=== PATIENT | female | born 1975 | race Caucasian/White ===

== ENCOUNTER 2017-02-14 08:23 | Outpatient (CLI) | payer OTHER, MEDICAID ==
--- NOTE | 2017-02-14 17:07 | XRAY Report ---
EXAM: CHEST RADIOGRAPHY EXAM DATE: 02/14/2017 08:52 AM. CLINICAL HISTORY: Shortness of breath and fatigue. COMPARISON: None. TECHNIQUE: 2 views. FINDINGS: Lungs/Pleura: No focal opacities evident. No pleural effusion. No pneumothorax. Normal volumes. Mediastinum: Heart and mediastinal contours are unremarkable. Other: None. IMPRESSION: Normal 2-view chest radiography. [facility] Referring Provider Line: [phone] SITE ID: [id number]
--- NOTE | 2017-02-14 17:17 | Ultrasound Report ---
EXAM: PELVIC ULTRASOUND EXAM DATE: 02/14/2017 09:58 AM. CLINICAL HISTORY: BLOATING. FAMILY HISTORY OF OVARIAN CANCER. COMPARISON: None. TECHNIQUE: Realtime transabdominal pelvic scan performed to identify the uterus and adnexa and as an overview of other pelvic structures, followed by transvaginal scan to provide greater detail of the u terus and adnexa, with static image documentation. FINDINGS: Uterus: 7.9 x 4.5 x 3.3 cm, volume 61.3 cc. Anteverted position. Normal overall size and echotexture. Masses: None. Endometrium: 5 mm. Normal. Cervix: Unremarkable. Right Ovary: 2.6 x 1.4 x 1.4 cm, volume 2.6 cc. Normal echotexture and blood flow. Left Ovary: 2.7 x 1.0 x 1.2 cm, volume 1.6 cc. Normal echotexture and blood flow. Free Fluid: None. Other: None. IMPRESSION: Normal pelvic ultrasound. [facility] Referring Provider Line: [phone] SITE ID: [id number]
== END 2017-02-14 08:24 | disposition home or self-care (01) ==
LOC: DI 08:23
PROVIDERS: ATTEND Physician Assistant Medical
DX: R14.0 Abdominal distension (gaseous) (principal); Z80.41 Family history of malignant neoplasm of ovary; R06.02 Shortness of breath; R53.83 Other fatigue
CPT/HCPCS: 71020; 76830; 76856

== ENCOUNTER 2017-03-16 14:30 | Outpatient (CLI) | payer OTHER, MEDICAID | END 2017-03-16 14:31 | disposition home or self-care (01) | LOC: SC 14:30 | PROVIDERS: ATTEND Internal Medicine Pulmonary Disease | DX: G47.10 Hypersomnia, unspecified (principal); G47.8 Other sleep disorders; R06.83 Snoring; R51 Headache | CPT/HCPCS: 99203; 99212 ==

== ENCOUNTER 2017-03-18 11:34 | Day surgery (SDC) | payer OTHER, MEDICAID ==
[2017-03-18] MEDS ORDERED: LACTATED RINGERS 1,000 ML IV ONE (11:39)
[2017-03-18 12:11] LABS: HCG UR QUAL NEGATIVE
[2017-03-18] MEDS ORDERED: MIDAZOLAM 2 MG/2 ML VIAL IVP ONE (12:18)
[2017-03-18] MEDS ORDERED: fentaNYL 100 MCG/2 ML VIAL IVP ONE (12:18)
[2017-03-18 13:59] VITALS: BP 132/78
--- NOTE | 2017-03-21 02:14 | PROCEDURE REPORT ---
DATE OF PROCEDURE: 03/18/2017 00:00:00 PROCEDURES: Esophagogastroduodenoscopy and colonoscopy. ENDOSCOPIST: Yon Coleman MD PRIMARY CARE PROVIDER: GIFTY Doe INDICATION: Family history of colon cancer with her father dying at age 62. In addition, this was w idely metastatic. She thinks he may have had esophageal cancer as well. Her sister was diagnosed re cently at age 41, and a paternal grandfather has been diagnosed as well. 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 In addition, she has chronic dyspepsia with workup in the past. She also has chronic d iarrhea, for which she takes 8 Imodium a day to get formed bowel movements up to 6 per day. She is d ue to get genetic testing at [facility]. OPERATIVE PROCEDURE: After informed consent was obtained, the patient was placed in the left lateral decubitus position. The upper endoscope was placed into the oropharynx and with the patient's swall owed into the esophagus. The esophagus, stomach, and duodenum were carefully examined. On withdrawa l, retroflexed view of the GE junction was performed. The scope was removed. The patient tolerated the procedure well. The patient was then turned. The colonoscope was the substituted, and this was easily passed to the cecum. Preparation was good, except in the right colon, where there was some residual vegetable mate rial that could not be suctioned away. On slow withdrawal, the mucosa was carefully examined. The s cope was removed. The patient tolerated the procedure well. BLOOD LOSS: None. COMPLICATIONS: None. FINDINGS - EGD 1. Normal esophagus. 2. Stomach full of old food despite not having eaten in many hours. This probably indicates gastropa resis. 3. Normal duodenal bulb and sweep. Biopsy taken to rule out celiac. FINDINGS - COLONOSCOPY 1. Generally normal colonic mucosa, biopsies taken randomly to rule out microscopic colitis. 2. No evidence for colonic neoplasia. At this time, given her strong family history and meeting Smock criteria, she should have recall colonoscopy in 2 years. I would encourage her to get genetic testing if covered, but more importantl y, her sister should be tested, as she is the one who actually had the colon cancer. If that specifi c genetic defect is found in her, then it would be far less costly to test other members of the famil y. As concerns her diarrhea, we will merely await biopsies, and she should follow up with me in 1-2 sima hs. In the meantime, she should be on a low-residue, low-fat diet because of her gastroparesis. Mirian stewart may need to be investigated further as well. She did tell me that she has been diagnosed as having H pylori but has not picked up the medications for it yet. JOB #: [id number] EXT JOB #:[id number]
== END 2017-03-18 11:35 | disposition home or self-care (01) ==
LOC: SDS 11:34
PROVIDERS: ATTEND Internal Medicine Gastroenterology
PROC: 0DBE8ZX Excision of Large Intestine, Via Natural or Artificial Opening Endoscopic, Diagnostic (ICD-10-PCS; principal; 2017-03-18 12:30)
PROC: 0DB98ZX Excision of Duodenum, Via Natural or Artificial Opening Endoscopic, Diagnostic (ICD-10-PCS; 2017-03-18 12:30)
DX: Z12.11 Encounter for screening for malignant neoplasm of colon (principal); R10.13 Epigastric pain; Z80.0 Family history of malignant neoplasm of digestive organs; K52.9 Noninfective gastroenteritis and colitis, unspecified; I10 Essential (primary) hypertension
CPT/HCPCS: 43239; 45380; 81025; 88305; J7120

== ENCOUNTER 2017-06-10 14:27 | Outpatient (CLI) | payer BC, MEDICAID, OTHER | END 2017-06-10 14:28 | disposition home or self-care (01) | LOC: SC 14:27 | PROVIDERS: ATTEND Nurse Practitioner Family | DX: G47.30 Sleep apnea, unspecified (principal); G47.10 Hypersomnia, unspecified; R51 Headache; R09.89 Other specified symptoms and signs involving the circulatory and respiratory systems; G47.8 Other sleep disorders; G47.00 Insomnia, unspecified | CPT/HCPCS: 99212; 99214 ==

== ENCOUNTER 2017-10-27 21:36 | Outpatient (CLI) | payer OTHER | END 2017-10-27 21:37 | disposition home or self-care (01) | LOC: SC 21:36 | PROVIDERS: ATTEND Internal Medicine Pulmonary Disease | DX: G47.33 Obstructive sleep apnea (adult) (pediatric) (principal) | CPT/HCPCS: 95810 ==

== ENCOUNTER 2017-10-28 06:31 | Outpatient (CLI) | payer OTHER | END 2017-10-28 06:32 | disposition home or self-care (01) | LOC: SC 06:31 | PROVIDERS: ATTEND Internal Medicine Pulmonary Disease | DX: G47.30 Sleep apnea, unspecified (principal); G47.10 Hypersomnia, unspecified | CPT/HCPCS: 95805 ==

== ENCOUNTER 2017-10-28 16:14 | Outpatient (CLI) | payer OTHER ==
[2017-10-28 09:47] LABS: MUDS CUTOFF CONCENTRATIONS CUTOFF CONC BELOW:
[2017-10-28 14:07] LABS: AMPHETAMINE SCREEN,URINE NEGATIVE (NEGATIVE); BENZODIAZEPINES SCREEN, URINE NEGATIVE (NEGATIVE); COCAINE SCREEN URINE NEGATIVE (NEGATIVE); METHADONE SCREEN, URINE NEGATIVE (NEGATIVE); METHAMPHETAMINES SCREEN, URINE NEGATIVE (NEGATIVE); OPIATE SCREEN, URINE NEGATIVE (NEGATIVE); OXYCODONE SCREEN, URINE NEGATIVE (NEGATIVE); PROPOXYPHENE SCREEN, URINE NEGATIVE (NEGATIVE); TRICYCLIC ANTIDEPRESSANT,URINE NEGATIVE (NEGATIVE)
== END 2017-10-28 16:15 | disposition home or self-care (01) ==
LOC: LAB.N 16:14
PROVIDERS: ATTEND Nurse Practitioner Family
DX: G47.33 Obstructive sleep apnea (adult) (pediatric) (principal)
CPT/HCPCS: 80306

== ENCOUNTER 2017-11-08 00:10 | Emergency (ER) | payer OTHER ==
[2017-11-08 00:39] LABS: BASOPHILS # (AUTO) 0.1 10^3/uL (0.0-0.1); BASOPHILS % (AUTO) 0.8 %; EOSINOPHILS # (AUTO) 0.2 10^3/uL (0.0-0.7); EOSINOPHILS % (AUTO) 1.6 %; HGB - HEMOGLOBIN 13.9 g/dL (12.0-16.0); LYMPHOCYTES # (AUTO) 5.1 10^3/uL (1.5-3.5); LYMPHOCYTES % (AUTO) 33.1 %; MEAN CORPUSCULAR HEMOGLOBIN 28.6 pg (27.0-31.0); MEAN CORPUSCULAR HGB CONC 33.7 g/dL (32.0-36.0); MEAN CORPUSCULAR VOLUME 84.9 fL (81.0-99.0); MEAN PLATELET VOLUME 7.9 fL (7.9-10.8); MONOCYTES # (AUTO) 1.1 10^3/uL (0.0-1.0); NEUTROPHILS # (AUTO) 8.8 10^3/uL (1.5-6.6); NEUTROPHILS % (AUTO) 57.5 %; PLT - PLATELET COUNT 370 10^3/uL (130-450); RED BLOOD COUNT 4.86 10^6/uL (4.20-5.40); RED CELL DISTRIBUTION WIDTH 13.1 % (12.0-15.0); WHITE BLOOD COUNT 15.3 x10^3/uL (4.8-10.8)
[2017-11-08 00:40] LABS: BILIRUBIN,URINE NEGATIVE (NEGATIVE); GLUCOSE, URINE (UA) NEGATIVE (NEGATIVE); KETONES,URINE (UA) NEGATIVE (NEGATIVE); LEUKOCYTE ESTERASE, URINE NEGATIVE (NEGATIVE); NITRITE,URINE NEGATIVE (NEGATIVE); OCCULT BLOOD,URINE LARGE (NEGATIVE); PROTEIN,URINE NEGATIVE (NEGATIVE); UROBILINOGEN,URINE 0.2 (NORMAL) E.U./dL (NORMAL)
[2017-11-08 00:43] LABS: CLARITY,URINE CLOUDY (CLEAR); HCG UR QUAL NEGATIVE
[2017-11-08 00:47] LABS: ALBUMIN 3.9 g/dL (3.2-5.5); ALBUMIN/GLOBULIN RATIO 1.3 (1.0-2.2); ALKALINE PHOSPHATASE 62 IU/L (42-121); ALT ALANINE AMINOTRANSFERASE 13 IU/L (10-60); AST ASPARTATE AMINOTRANSFERASE 16 IU/L (10-42); BILIRUBIN,TOTAL < 0.2 mg/dL (0.2-1.0); BUN - BLOOD UREA NITROGEN 12 mg/dL (6-20); CALCIUM 8.9 mg/dL (8.5-10.3); CARBON DIOXIDE - CO2 22 mmol/L (21-32); CHLORIDE 107 mmol/L (101-111); CREATININE 0.9 mg/dL (0.4-1.0); GFR - MDRD 68 (>89); GLUCOSE 116 mg/dL (70-100); LIPASE 35 U/L (22-51); SODIUM 136 mmol/L (135-145)
[2017-11-08 00:58] LABS: BACTERIA,URINE None Seen /HPF (None Seen); RBC,URINE TNTC /HPF (0-5); SQUAMOUS EPITHELIAL CELL,UR FEW Squamous (<= Few)
--- NOTE | 2017-11-08 01:03 | ED Physician Documentation ---
PD HPI ABD PAIN - Stated complaint Stated Complaint: ABD PX - Chief complaint Chief Complaint: Abd Pain - History obtained from History obtained from: Patient - History of Present Illness Timing - onset: How many weeks ago (2) Timing - details: Abrupt onset, Intermittant Pain level now: 6 Quality: Pain Location: RUQ Radiation: Right flank Improved by: Other (no ameliorating factors) Worsened by: Other (no exacerbating factors) Associated symptoms: Nausea. No: Fever, Vomiting, Diarrhea, Constipation Similar symptoms before: Diagnosis (many previous episodes of renal colic, although tonight's pain is not in a typical location compared to previous) Recently seen: Not recently seen - Additional information Additional information: c/o 2 weeks of episodic RUQ pain radiating to right flank, became severe this evening. Nausea without vomiting, responds to zofran Review of Systems Constitutional: denies: Fever, Chills, Sweats Cardiac: reports: Reviewed and negative Respiratory: reports: Reviewed and negative GI: reports: Abdominal Pain, Nausea. denies: Vomiting, Constipation, Diarrhea : denies: Dysuria, Frequency, Hematuria PD PAST MEDICAL HISTORY - Past Medical History Past Medical History: Yes Cardiovascular: Hypertension Respiratory: None Neuro: None Endocrine/Autoimmune: None GI: GERD PHYSICIST NUCLEAR: None : Kidney stones HEENT: None Psych: None Musculoskeletal: None Derm: None - Past Surgical History Past Surgical History: Yes Ortho: Shoulder arthroplasty - Present Medications Home Medications: Ambulatory Orders Medication Instructions Recorded Confirmed Control 01/29/13 01/29/13 Lisinopril [Zestril] 10 mg PO DAILY 01/29/13 03/17/17 Famotidine 11/08/17 Liraglutide [Victoza 2-Eligio] 11/08/17 Omeprazole [PriLOSEC] 11/08/17 Ondansetron Odt [Zofran] 4 mg TL Q6H PRN #14 tablet 11/08/17 Tamsulosin [Flomax] 0.4 mg PO DAILY #7 capsule 11/08/17 oxyCODONE/ACET 5/325 [Percocet 5 1 - 2 each PO Q6H PRN #20 tablet 11/08/17 mg/325 mg] - Allergies Allergies/Adverse Reactions: Allergies Allergy/AdvReac Type Severity Reaction Status Date / Time acetaminophen [From Vicodin] AdvReac Severe Nausea Verified 11/08/17 00:17 hydrocodone bitartrate * AdvReac Severe Nausea Verified 11/08/17 00:17 [From Vicodin] - Social History Does the pt smoke?: No Smoking Status: Never smoker Does the pt drink ETOH?: No Does the pt have substance abuse?: No - Immunizations Immunizations are current?: Yes - POLST Patient has POLST: No PD ED PE NORMAL - Vitals Vital signs reviewed: Yes - General General: Alert and oriented X 3, No acute distress, Well developed/nourished - Respiratory Respiratory: No respiratory distress, Clear bilaterally - Abdomen Abdomen: Soft, Non tender, Non distended - Back Back: No CVA TTP, No spinal TTP - Derm Derm: Normal color, Warm and dry, No rash Results - Vitals Vitals: Oxygen O2 Source Room air - Labs Labs: Laboratory Tests 11/08/17 11/08/17 11/08/17 00:28 00:28 00:28 WBC 15.3 H RBC 4.86 Hgb 13.9 Hct 41.2 MCV 84.9 MCH 28.6 MCHC 33.7 RDW 13.1 Plt Count 370 MPV 7.9 Neut # 8.8 H Lymph # 5.1 H Hart # 1.1 H Eos # 0.2 Baso # 0.1 Absolute Nucleated RBC 0.00 Nucleated RBC % 0.0 Sodium 136 Potassium 4.0 Chloride 107 Carbon Dioxide 22 Anion Gap 7.0 BUN 12 Creatinine 0.9 Estimated GFR (MDRD) 68 L Glucose 116 H Calcium 8.9 Total Bilirubin < 0.2 L AST 16 ALT 13 Alkaline Phosphatase 62 Total Protein 7.0 Albumin 3.9 Globulin 3.1 Albumin/Globulin Ratio 1.3 Lipase 35 Urine Color YELLOW Urine Clarity CLOUDY Urine pH 6.0 Ur Specific Terrell 1.015 Urine Protein NEGATIVE Urine Glucose (UA) NEGATIVE Urine Ketones NEGATIVE Urine Occult Blood LARGE H Urine Nitrite NEGATIVE Urine Bilirubin NEGATIVE Urine Urobilinogen 0.2 (NORMAL) Ur Leukocyte Esterase NEGATIVE Urine RBC TNTC H Urine WBC 0-3 Ur Squamous Epith Cells FEW Squamous Urine Bacteria None Seen Ur Microscopic Review INDICATED Urine Culture Comments NOT INDICATED Urine HCG, Qual NEGATIVE - Rads (name of study) CT A/P Radiology: Prelim report reviewed, See rad report PD MEDICAL DECISION MAKING - ED course Complexity details: reviewed results, re-evaluated patient, considered differential, d/w patient ED course: CT reveals right ureterolithiasis. Inadequate response to IV lidocaine, IV toradol. She had good pain relief with IV dilaudid 1mg, although this also made her quite nauseas. Held in ED and given IV zofran until she felt well enough to go home. Departure - Departure Disposition: , Self Care Clinical Impression: Renal colic Condition: Good Instructions: ED Stone Renal W Colic Follow-Up: Elif Fournier PA-C [Provider Admit Priv/Credential] - Prescriptions: Ondansetron Odt [Zofran] 4 mg TL Q6H PRN #14 tablet PRN Reason: Nausea / Vomiting oxyCODONE/ACET 5/325 [Percocet 5 mg/325 mg] 1 - 2 each PO Q6H PRN #20 tablet PRN Reason: Pain Tamsulosin [Flomax] 0.4 mg PO DAILY #7 capsule Discharge Date/Time: 11/08/17 06:14
[2017-11-08] MEDS ORDERED: KETOROLAC 60 MG/2 ML VIAL IVP STA (01:23)
--- NOTE | 2017-11-08 03:07 | CT Preliminary Report ---
Exam: CT ABDOMEN/PELVIS W/O IMPRESSION: 1. Mildly obstructing 7 x 5 mm mid to distal right ureteral stone. 2. Numerous bilateral nonobstructing renal stones with left stone burden worse than right. [facility] SITE ID: [id number]
--- NOTE | 2017-11-08 03:10 | CT Report ---
EXAM: CT ABDOMEN AND PELVIS (CT KUB) EXAM DATE: 11/08/2017 01:45 AM. CLINICAL HISTORY: Right flank pain. COMPARISONS: 01/29/2013. TECHNIQUE: Routine axial helical CT imaging was performed through the abdomen and pelvis without IV c ontrast. Reconstructions: Coronal and sagittal. In accordance with CT protocol optimization, one or more of the following dose reduction techniques w ere utilized for this exam: automated exposure control, adjustment of mA and/or KV based on patient s ize, or use of iterative reconstructive technique. FINDINGS: Lung Bases: Unremarkable. Right Kidney/Ureter: Mildly obstructing 7 x 5 mm mid to distal right ureteral stone. Several small no nobstructing right renal stones measuring up to 4 mm. Otherwise grossly unremarkable. Left Kidney/Ureter: Several small nonobstructing right renal stones measuring up to 6 mm. No ureteral stones, hydronephrosis, or hydroureter. Other Abdominal Organs: Noncontrast images of the abdominal organs are grossly unremarkable. Peritoneal Cavity: No free fluid, free air or preet adenopathy. No excessive stool burden. Bowel is g rossly unremarkable. Pelvic Organs: No bladder stones or gross wall thickening. Noncontrast images of the visualized pelvi c organs are unremarkable. Vasculature: Unremarkable. Other: None. IMPRESSION: 1. Mildly obstructing 7 x 5 mm mid to distal right ureteral stone. 2. Numerous bilateral nonobstructing renal stones with left stone burden worse than right. [facility] Referring Provider Line: [phone] SITE ID: [id number]
[2017-11-08] MEDS ORDERED: LIDOCAINE-MPF 2% 7.5 ML in SODIUM CHLORIDE 0.9% 50 ML IV STA (03:35)
[2017-11-08] MEDS ORDERED: TAMSULOSIN 0.4 MG CAPSULE PO STA (04:14)
[2017-11-08] MEDS ORDERED: ONDANSETRON 4 MG/2 ML VIAL IVP STA ×2 (04:22→05:34)
[2017-11-08] MEDS ORDERED: HYDROmorphone 1 MG/ML SYRINGE IVP STA (04:22)
[2017-11-08] MEDS ORDERED: ONDANSETRON 4 MG/2 ML VIAL ONE (05:44)
[2017-11-08 05:57] VITALS: BP 135/71
[2017-11-08] MEDS ORDERED: oxyCODONE/ACET 5/325 Prepack 4 PO STA (05:58)
== END 2017-11-08 06:14 | disposition home or self-care (01) ==
LOC: ED 00:10
DX: N20.1 Calculus of ureter (principal); I10 Essential (primary) hypertension
CPT/HCPCS: 36415; 74176; 80053; 81001; 81025; 83690; 85025; 96365; 96375; 96376; 99284; A9270; J1170; J7040; 81003; 87086

== ENCOUNTER 2017-11-10 08:00 | Outpatient (CLI) | payer OTHER | END 2017-11-10 08:01 | disposition home or self-care (01) | LOC: LAB.WCP 08:00 | PROVIDERS: ATTEND Physician Assistant Medical | DX: N39.0 Urinary tract infection, site not specified (principal) | CPT/HCPCS: 87086 ==

== ENCOUNTER 2017-11-17 09:11 | Outpatient (CLI) | payer OTHER | END 2017-11-17 09:12 | disposition home or self-care (01) | LOC: SC 09:11 | PROVIDERS: ATTEND Nurse Practitioner Family | DX: G47.33 Obstructive sleep apnea (adult) (pediatric) (principal) | CPT/HCPCS: 99212; 99214 ==

== ENCOUNTER 2017-12-08 12:17 | Outpatient (CLI) | payer OTHER ==
[2017-12-08 12:42] LABS: BASOPHILS # (AUTO) 0.1 10^3/uL (0.0-0.1); BASOPHILS % (AUTO) 0.7 %; EOSINOPHILS # (AUTO) 0.2 10^3/uL (0.0-0.7); EOSINOPHILS % (AUTO) 2.3 %; HGB - HEMOGLOBIN 13.2 g/dL (12.0-16.0); LYMPHOCYTES % (AUTO) 31.4 %; MEAN CORPUSCULAR HEMOGLOBIN 28.5 pg (27.0-31.0); MEAN CORPUSCULAR HGB CONC 33.2 g/dL (32.0-36.0); MEAN CORPUSCULAR VOLUME 85.8 fL (81.0-99.0); MEAN PLATELET VOLUME 8.5 fL (7.9-10.8); MONOCYTES # (AUTO) 0.6 10^3/uL (0.0-1.0); MONOCYTES % (AUTO) 5.8 %; NEUTROPHILS # (AUTO) 5.7 10^3/uL (1.5-6.6); NEUTROPHILS % (AUTO) 59.8 %; PLT - PLATELET COUNT 340 10^3/uL (130-450); RED BLOOD COUNT 4.63 10^6/uL (4.20-5.40); WHITE BLOOD COUNT 9.6 x10^3/uL (4.8-10.8)
[2017-12-08 12:59] LABS: HEMOGLOBIN A1C 0.56 g/dL; HEMOGLOBIN A1C % 5.6 % (4.6-6.2)
[2017-12-08 13:05] LABS: ALBUMIN/GLOBULIN RATIO 1.3 (1.0-2.2); ALKALINE PHOSPHATASE 59 IU/L (42-121); ALT ALANINE AMINOTRANSFERASE 14 IU/L (10-60); AST ASPARTATE AMINOTRANSFERASE 16 IU/L (10-42); BILIRUBIN,TOTAL 0.3 mg/dL (0.2-1.0); BUN - BLOOD UREA NITROGEN 14 mg/dL (6-20); CALCIUM 8.9 mg/dL (8.5-10.3); CARBON DIOXIDE - CO2 21 mmol/L (21-32); CHLORIDE 105 mmol/L (101-111); CHOL/HDL RATIO 4.1 (<4.4); CHOLESTEROL 161 mg/dL; CREATININE 0.8 mg/dL (0.4-1.0); GFR - MDRD 78 (>89); GLUCOSE 120 mg/dL (70-100); HDL CHOLESTEROL 39 mg/dL; LDL CHOLESTEROL,CALCULATED 81 mg/dL; LDL/HDL RATIO 2.1 (<4.4); SODIUM 134 mmol/L (135-145); TOTAL PROTEIN 7.1 g/dL (6.7-8.2); VLDL CHOLESTEROL 41 mg/dL
== END 2017-12-08 12:18 | disposition home or self-care (01) ==
LOC: LAB.WCP 12:17
PROVIDERS: ATTEND Physician Assistant Medical
DX: E11.9 Type 2 diabetes mellitus without complications (principal); E78.5 Hyperlipidemia, unspecified
CPT/HCPCS: 36415; 80053; 80061; 82043; 83036; 83721; 84443; 85025

== ENCOUNTER 2017-12-11 07:18 | Outpatient (CLI) | payer OTHER ==
[2017-12-11 12:52] LABS: BILIRUBIN,URINE NEGATIVE (NEGATIVE); GLUCOSE, URINE (UA) NEGATIVE (NEGATIVE); KETONES,URINE (UA) NEGATIVE (NEGATIVE); LEUKOCYTE ESTERASE, URINE NEGATIVE (NEGATIVE); NITRITE,URINE NEGATIVE (NEGATIVE); OCCULT BLOOD,URINE MODERATE (NEGATIVE); PH,URINE 6.5 PH (5.0-7.5); PROTEIN,URINE NEGATIVE (NEGATIVE); UROBILINOGEN,URINE 0.2 (NORMAL) E.U./dL (NORMAL)
[2017-12-11 12:58] LABS: CLARITY,URINE CLEAR (CLEAR)
[2017-12-11 13:41] LABS: SQUAMOUS EPITHELIAL CELL,UR FEW Squamous (<= Few)
[2017-12-11 13:43] LABS: BACTERIA,URINE Few /HPF (None Seen)
[2017-12-11 13:44] LABS: CASTS, URINE 0-2 Hyaline Casts /LPF; CRYSTALS,URINE 0-2 Calcium Oxalate /LPF; MUCUS,URINE Few Strands
== END 2017-12-11 07:19 | disposition home or self-care (01) ==
LOC: LAB.WCP 07:18
PROVIDERS: ATTEND Physician Assistant Medical
DX: N39.0 Urinary tract infection, site not specified (principal)
CPT/HCPCS: 81001; 87086

== ENCOUNTER 2017-12-14 08:00 | Outpatient (CLI) | payer OTHER | END 2017-12-14 08:01 | LOC: LAB.WCP 08:00 | PROVIDERS: ATTEND Physician Assistant Medical | DX: N39.0 Urinary tract infection, site not specified (principal) | CPT/HCPCS: 87077; 87086 ==

== ENCOUNTER 2017-12-26 08:58 | Outpatient (CLI) | payer OTHER ==
--- NOTE | 2017-12-26 17:09 | Ultrasound Report ---
EXAM: THYROID ULTRASOUND EXAM DATE: 12/26/2017 10:03 AM. CLINICAL HISTORY: Thyroid nodule. COMPARISON: 06/01/2007. TECHNIQUE: Real time sonographic imaging of the thyroid was performed by the inner layer scrubber tender. Multiple re presentative static images were saved for review. FINDINGS: THYROID GLAND: Right Lobe: 4.7 x 1.4 x 1.7 cm, volume 5.8 cc. Normal background echotexture. Right Lobe Nodules: Multiple tiny cysts, the largest 0.3 cm Left Lobe: 4.9 x 1.3 x 1.8 cm, volume 6.0 cc. Normal background echotexture. Left Lobe Nodules: Partially cystic nodule with eccentric solid area, inferior pole, 1.2 x 0.9 x 1.0 cm. Isthmus: 0.6 cm AP. Isthmic Nodules: None. LYMPH NODES: No adenopathy demonstrated in the central or lateral compartment. OTHER: None. IMPRESSION: 1.2 cm ARTHUR low suspicion sonographic pattern nodule in the inferior left thyroid lobe. Th is does not meet criteria for FNA. Consider follow-up imaging in 12-24 months. Management recommendations are based on 2015 [place] [employer] Management Guidelines for A dult Patients with Thyroid Nodules and Differentiated Thyroid Cancer. [facility] Referring Provider Line: [phone] SITE ID: [id number]
== END 2017-12-26 08:59 | disposition home or self-care (01) ==
LOC: DI 08:58
PROVIDERS: ATTEND Physician Assistant Medical
DX: E04.1 Nontoxic single thyroid nodule (principal)
CPT/HCPCS: 76536

== ENCOUNTER 2018-01-08 17:18 | Outpatient (CLI) | payer OTHER ==
--- NOTE | 2018-01-09 09:53 | XRAY Report ---
EXAM: LUMBOSACRAL SPINE RADIOGRAPHY EXAM DATE: 01/08/2018 05:39 PM. CLINICAL HISTORY: SCIATICA, right. COMPARISONS: CT of the abdomen and pelvis without contrast 11/08/2017. TECHNIQUE: 2 views. FINDINGS: Alignment: Normal. No spondylolisthesis or scoliosis. Bones: Five mcp-lbx-moouesl lumbar vertebral bodies are present. No fractures or bone lesions. Disks: There is mild disk height loss and anterior endplate osteophyte formation at the L3-L4, L4-L5 and L5-S1 levels. Facets: No degenerative changes. Sacroiliac Joints: There are mild degenerative facet changes at the L4-L5 and L5-S1 levels. Soft Tissues: Normal. The visualized bowel gas pattern is normal. IMPRESSION: Mild degenerative disk and degenerative facet changes of the lower lumbar spine. No acute osseous abn ormality. [facility] Referring Provider Line: [phone] SITE ID: [id number]
== END 2018-01-08 23:59 | disposition home or self-care (01) ==
LOC: DI 17:18
PROVIDERS: ATTEND Family Medicine
DX: M51.16 Intervertebral disc disorders with radiculopathy, lumbar region (principal); M51.17 Intervertebral disc disorders with radiculopathy, lumbosacral region; M47.9 Spondylosis, unspecified
CPT/HCPCS: 72100

== ENCOUNTER 2018-01-11 15:43 | Outpatient (CLI) | payer OTHER | END 2018-01-11 15:44 | disposition home or self-care (01) | LOC: SC 15:43 | PROVIDERS: ATTEND Nurse Practitioner Family | DX: G47.33 Obstructive sleep apnea (adult) (pediatric) (principal) | CPT/HCPCS: 99214 ==

== ENCOUNTER 2018-01-13 07:42 | Outpatient (CLI) | payer OTHER ==
--- NOTE | 2018-01-13 09:36 | Ultrasound Report ---
RIGHT LEG VENOUS DUPLEX: 01/13/2018 CLINICAL INDICATION: Right calf pain. TECHNIQUE: Real-time sonographic vascular imaging was performed by the nurse anesthesia program director through the right leg utilizing both color flow and Doppler spectral analysis. Multiple disability representative static images were saved for review. FINDINGS: A right lower extremity venous sonogram is performed revealing the common femoral, superficial femoral, profunda femoris, and popliteal veins to be adequately visualized without intraluminal defects. There is normal venous compression, augmentation, phasicity, and spontaneity of venous flow. In the calf, the visualized more cephalad portions of posterior tibial and peroneal veins are grossly compressible, without filling defects. IMPRESSION: NO EVIDENCE OF DEEP VENOUS THROMBOSIS. TD: 01/13/2018 09:29
== END 2018-01-13 07:43 | disposition home or self-care (01) ==
LOC: DI 07:42
PROVIDERS: ATTEND Family Medicine
DX: M79.661 Pain in right lower leg (principal); M54.31 Sciatica, right side

== ENCOUNTER 2018-03-08 07:46 | Outpatient (CLI) | payer OTHER | END 2018-03-08 07:47 | disposition home or self-care (01) | LOC: LAB 07:46 | PROVIDERS: ATTEND Surgery | DX: R19.7 Diarrhea, unspecified (principal) | CPT/HCPCS: 36415; 81599; 82274; 82438; 82710; 82941; 83986; 83993; 84302; 84311 ==

== ENCOUNTER 2018-04-24 12:18 | Outpatient (CLI) | payer OTHER ==
--- NOTE | 2018-04-24 15:04 | Ultrasound Report ---
Reason: ABDOMINAL PAIN, RUQ Procedure Date: 04/24/2018 Accession Number: [id number] / [id number] Procedure: US - Abdomen Complete CPT Code: FULL RESULT: EXAM: ABDOMEN ULTRASOUND EXAM DATE: 04/24/2018 01:57 PM. CLINICAL HISTORY: Right upper quadrant pain. Recent lithotripsy of the right kidney. COMPARISON: Abdomen pelvis CT 11/08/2017. TECHNIQUE: Real-time scanning was performed with static images obtained. FINDINGS: Liver: Normal in echotexture. It measures 20 cm. Main portal vein flow: Hepatopetal. Gallbladder: Normal. No stones, wall thickening, or sonographic Saleh's sign. Biliary System: Common bile duct measures 5 mm. No intrahepatic or extrahepatic ductal dilatation. Pancreas: Visualized pancreas is unremarkable. Kidneys: Right: 12.6 cm longitudinally. 6 mm mid renal hyperechoic focus, likely a renal stone. Ill-defined hyperechoic region of the lateral right kidney, likely hematoma given the history of recent lithotripsy. Left: 11.9 cm longitudinally. There are multiple left renal stones. Spleen: 11 cm. Normal in size and echotexture. Likely splenule is noted. Aorta and Inferior Vena Cava: Unremarkable. IMPRESSION: Bilateral renal stones. Likely small right renal hematoma. Hepatic enlargement. [facility]
== END 2018-04-24 12:19 | disposition home or self-care (01) ==
LOC: DI 12:18
PROVIDERS: ATTEND Physician Assistant Medical
DX: R10.11 Right upper quadrant pain (principal); N20.0 Calculus of kidney
CPT/HCPCS: 76700

== ENCOUNTER 2018-05-07 13:18 | Outpatient (CLI) | payer OTHER ==
[2018-05-07] MEDS ORDERED: SINCALIDE 5 MCG VIAL ONE (16:03)
[2018-05-07] MEDS ORDERED: REGADENOSON 0.4 MG/5 ML SYRINGE IVP ONE (17:21)
[2018-05-07] MEDS ORDERED: SODIUM CHLORIDE 0.9% IV ONE (17:51)
[2018-05-07] MEDS ORDERED: SINCALIDE IV ONE (17:51)
--- NOTE | 2018-05-10 08:47 | Nuclear Medicine Report ---
Reason: ABDOMINAL PAIN, RUQ Procedure Date: 05/07/2018 Accession Number: [id number] / [id number] Procedure: NM - Hepatobiliary HIDA w/ Rx CPT Code: FULL RESULT: EXAM: HEPATOBILIARY SCAN WITH CCK/KINEVAC ADMINISTRATION EXAM DATE: 05/07/2018 01:50 PM. CLINICAL HISTORY: ABDOMINAL PAIN, RUQ. COMPARISON: None. TECHNIQUE: Following the intravenous administration of 5 mCi of Tc99m Mebrofenin, a hepatobiliary scan was done centered on the liver and gallbladder in multiple sequential images and projections. Following the intravenous administration of 2.1 mcg of CCK/ Kinevac over the course of approximately 60 minutes, dynamic imaging was done and the gallbladder ejection fraction was calculated. FINDINGS: Normal extraction of tracer from the blood pool indicating normal hepatocellular function. The liver size and shape is grossly within normal limits. Appearance of tracer in the biliary tree as early as 5 minutes, within normal limits. Appearance of tracer in the gallbladder after 1 hour. Appearance of tracer in the small bowel as early as 5 minutes, within normal limits. With CCK administration, the gallbladder ejection fraction is calculated to be 49%, above the lower limit of normal of 38% for a 60-minute injection. Patient reported right upper quadrant pain after CCK administration. No evidence of enteric reflux into the stomach. No significant collection of tracer remaining in the common bile duct by the end of the study. IMPRESSION: 1. No scintigraphic evidence of acute cholecystitis. 2. Patent common bile duct. 3. Delayed visualization of the gallbladder, nonspecific but could be seen in association with chronic cholecystitis. 4. Gallbladder ejection fraction is in the normal range however patient reports right upper quadrant pain with CCK administration. [facility]
== END 2018-05-07 13:19 | disposition home or self-care (01) ==
LOC: DI 13:18
PROVIDERS: ATTEND Physician Assistant Medical
DX: R10.11 Right upper quadrant pain (principal)
CPT/HCPCS: 78227; J7040

== ENCOUNTER 2018-05-28 06:08 | Day surgery (SDC) | payer OTHER ==
[2018-05-28] MEDS ORDERED: ceFAZolin 2 GM/50 ML 2 GM/50 ML BAG IV ONE (06:26)
[2018-05-28] MEDS ORDERED: BUPIVACAINE 0.5% PF 30 ML VIAL ONE (06:52)
[2018-05-28 07:02] LABS: HCG UR QUAL NEGATIVE
[2018-05-28] MEDS ORDERED: LACTATED RINGERS 1,000 ML IV ONE ×3 (07:05→10:00)
[2018-05-28] MEDS ORDERED: SCOPOLAMINE PATCH TOP ONE (07:09)
--- NOTE | 2018-05-28 07:29 | ANESTHESIA ---
Pre-Anesthesia VS, & Labs - Diagnosis Biliary colic - Procedure Lap missael with IOC Vital Signs: Temp Pulse Resp BP Pulse Ox 37.2 C 82 18 169/87 H 98 05/28/18 06:43 05/28/18 06:43 05/28/18 06:43 05/28/18 06:43 05/28/18 06:43 Height 5 ft 2 in Weight (kg) 102.6 kg Body Mass Index 40.9 - NPO >8 hours Last Fluid Intake: water 0600 - Is Patient ?: No - Lab Results Lab results reviewed: Yes Home Medications and Allergies Home Medications: Ambulatory Orders Medication Instructions Recorded Confirmed Cetirizine [ZyrTEC] 10 mg PO DAILY 05/27/18 05/28/18 Cyclobenzaprine [Flexeril] 10 mg PO TID PRN 05/27/18 05/28/18 Desogestrel-Ethinyl Estradiol 1 each PO DAILY 05/27/18 05/28/18 [Apri 28 Day Tablet] Famotidine 20 mg PO DAILY 05/27/18 05/28/18 Lisinopril 20 mg PO DAILY 05/27/18 05/28/18 Omeprazole 20 mg PO DAILY 05/27/18 05/28/18 Cetirizine [ZyrTEC] 10 mg PO DAILY 05/27/18 Cyclobenzaprine [Flexeril] 10 mg PO TID PRN 05/27/18 Desogestrel-Ethinyl Estradiol [Apri 28 Day Tablet] 1 each PO DAILY 05/27/18 Famotidine 20 mg PO DAILY 05/27/18 Lisinopril 20 mg PO DAILY 05/27/18 Omeprazole 20 mg PO DAILY 05/27/18 Allergies/Adverse Reactions: Allergies Allergy/AdvReac Type Severity Reaction Status Date / Time hydrocodone bitartrate * AdvReac Severe Nausea Verified 11/08/17 00:17 [From Vicodin] adhesive tape AdvReac Rash Verified 05/28/18 06:41 Anes History & Medical History - Anesthetic History Anesthesia Complications: reports: Other-see comment (Post op nausea) Family history of Anesthesia Complications: Denies Family history of Malignant Hyperthermia: Denies - Medical History Cardiovascular: reports: Hypertension, High cholesterol Pulmonary: reports: Sleep apnea, CPAP use Gastrointestinal: reports: GERD Urinary: reports: Kidney stones Neuro: reports: None Musculoskeletal: reports: None Endocrine/Autoimmune: reports: None Blood Disorders: reports: None Skin: reports: None Smoking Status: Never smoker Psychosocial: reports: No issues indicated - Surgical History Eyes Ears Nose Throat (EENT): Tonsil/Adenoidectomy Urologic: Ureterolithotomy (stones) Gynecologic: Other Orthopedic: Shoulder arthroplasty Exam General: Alert, Oriented x3 Dental: WNL Mouth Opening: Greater than 4 Fingerbreadths Neck Mobility: Normal Mallampati classification: II Thyromental Distance: greater than 6 cm Respiratory: Lungs clear Cardiovascular: Regular rate Neurological: Normal speech Mental/Cognitive Status: Alert/Oriented X3 Cognitive Status: Within normal limits Plan Anesthesia Type: General Consent for Procedure(s) Verified and Reviewed: Yes Code Status: Attempt Resuscitation ASA classification: 2-Mild systemic disease Is this case an emergency?: No
[2018-05-28] MEDS ORDERED: BUPIVACAINE 0.5% PF 30 ML VIAL INFIL ONE (08:09)
[2018-05-28] MEDS ORDERED: DEXAMETHASONE 4 MG/ML VIAL IVP ONE (08:25)
[2018-05-28] MEDS ORDERED: HYDROmorphone 1 MG/ML SYRINGE IVP ONE (08:25)
[2018-05-28] MEDS ORDERED: SUCCINYLCHOLINE 200 MG/10 ML VIAL IVP ONE (08:25)
[2018-05-28] MEDS ORDERED: NEOSTIGMINE 1 MG/1 ML 10 ML MDV IVP ONE (08:25)
[2018-05-28] MEDS ORDERED: ONDANSETRON 4 MG/2 ML VIAL IVP ONE (08:25)
[2018-05-28] MEDS ORDERED: MIDAZOLAM 2 MG/2 ML VIAL IVP ONE (08:25)
[2018-05-28] MEDS ORDERED: fentaNYL 250 MCG/5 ML VIAL IVP ONE (08:25)
[2018-05-28] MEDS ORDERED: METOPROLOL 5 MG/5 ML VIAL IVP ONE (08:25)
[2018-05-28] MEDS ORDERED: PROPOFOL 200 MG/20 ML VIAL IVP ONE (08:25)
[2018-05-28] MEDS ORDERED: ACETAMINOPHEN 1,000 MG/100 ML 100 ML IV ONE (08:25)
[2018-05-28] MEDS ORDERED: GLYCOPYRROLATE 1 MG/5 ML VIAL IVP ONE (08:25)
[2018-05-28] MEDS ORDERED: ROCURONIUM 50 MG/5 ML VIAL IVP ONE (08:25)
[2018-05-28] MEDS ORDERED: LIDOCAINE-MPF 2% 5 ML VIAL IM ONE (08:25)
[2018-05-28] MEDS: fentaNYL 100 MCG/2 ML VIAL ONE ×2 (09:23→09:32)
--- NOTE | 2018-05-28 09:36 | OPERATIVE REPORT ---
Operative Report - General Procedure Date: 05/28/18 Planned Procedure: Laparoscopic cholecystectomy Pre-Op Diagnosis: Biliary colic Procedure Performed: Laparoscopic cholecystectomy Post Op Diagnosis: Same - Procedure Note Primary Surgeon: Rajiv Goodman MD Anesthesia Provider: Abdirashid Gan CRNA Anesthesia Technique: General ET tube IV Fluids (mL): 900 Estimated Blood Loss (mL): 5 Complications: None. - Other Other Information/Narrative: OPERATIVE DESCRIPTION/REPORT: After verbal and written informed consent was obtained detailing the risks of infection, bleeding with all of its risks including transfusion, common bile duct injury, and the patient was brought to the operative suite and placed in the supine position on the operating room table. Monitoring devices were applied along with TEDs and pneumatic compressive stockings. Care was taken to avoid pressure points. Prophylactic antibiotics were given. An adequate level of general endotracheal anesthesia was established by Abdirashid Gan CRNA. The abdomen was then prepped with ChloraPrep and draped in a sterile fashion. A "time in" then confirmed that the patient was identified with 3 identifiers (name, date and medical record number), the history and physical was in the chart, the signed consent confirming the procedure was in the chart, the patient was in the correct position, the aforementioned prophylactic measures we re in place or given, we had the correct personnel and equipment to complete the procedure and that anesthesia, surgery and nursing were given an opportunity to express any concerns. The initial incision was at the umbilicus and dissection to the linea alba was completed using blunt dissection. The linea alba was grasped with a Rosi and incised. In a similar manner the peritoneum was grasped and incised using Metzenbaum scissors. In this location, a 12 mm blunt tipped, balloon tipped port was placed and the balloon was inflated to keep the port in position. The abdominal cavity was insufflated with carbon dioxide to steady-state pressure of 15 mmHg. Three additional 5 mm ports were placed in standard location for laparoscopic cholecystectomy (subxiphoid and 2 right subcostal) under direct vision of the 30 degree laparoscope and without incident. The patient was then placed in reverse Trendelenburg position and was rotated slightly to their left. The gallbladder fundus was grasped with an atraumatic grasper. Multiple adhesions had to be taken down by blunt and sharp dissection along with electrocautery. Eventually, we identified the infundibulum, and this was then grasped and retracted inferior and laterally. Dissection was then begun in the angle of Calot. The cystic duct and (slightly medially and posteriorly) cystic artery were clearly identified. The critical view was obtained. Two clips proximally and one clip distally were used to control both the cystic duct and cystic artery. The clips were carefully placed to avoid occluding the juncture with the common bile duct. Both the cystic duct and then the cystic artery were then transected with laparoscopic daniela. The gallbladder was then removed from its fossa in a retrograde fashion using electrocautery. With the 30 degree 5 mm scope in the subxiphoid position, the gallbladder was placed in an EndoCatch bag to be extracted through the 12 mm port site. I irrigated the right upper quadrant with a liter of warm sterile saline, and the area was aspirated dry. I inspected the gallbladder fossa and there was no bleeding or bile leak. Clips on the cystic duct and cystic artery appeared to be secure. I briefly visually explored the abdomen. There was no other evidence of overt pathology. I injected the port sites at the peritoneal, fascial, and skin levels under direct vision with 0.5% Marcaine. All ports and the EndoCatch containing the gallbladder were removed. Following gallbladder removal, the remaining carbon dioxide was expelled from the abdomen. Please note during the procedure photographs were taken prior to the excision, the critical view, view of the cystic artery, and upon completion. The fascia at the umbilicus was reapproximated using 2 [id number] 0 Vicryl sutures. The skin at each port site was approximated using a subcuticular 4-0 Monocryl. The surgical count of instruments, needles and sponges was reported as correct twice. Mastisol, Steri-Strips and sterile surgical dressings were applied. The patient was then awakened from anesthesia, extubated, and having tolerated the procedure well, was transported to the recovery room. No complic ations were encountered. A "time out" confirmed the operation performed, the fluids given, the estimated blood loss and anesthesia, surgery and nursing were given an opportunity to express any concerns. [employer] disclaimer: This document was created in part using voice recognition technology. Because of the inherent limitations of the system ([employer]'s [employer] Dict[employer] user manual states that the licensee understands that speech recognition is a statistical process and that recognition errors are inherent in the process), occasional same sounding word substitutions and grammatical errors do occur and persist despite proofreading. Please read this document for context.
[2018-05-28] MEDS ORDERED: ONDANSETRON 4 MG/2 ML VIAL ONE (09:41)
[2018-05-28] MEDS ORDERED: oxyCODONE 5 MG TABLET PO PRN (09:48)
[2018-05-28] MEDS ORDERED: HYDROmorphone 0.5 MG/0.5 ML SYRINGE IVP PRN (09:48)
[2018-05-28] MEDS ORDERED: ONDANSETRON 4 MG/2 ML VIAL IVP PRN (09:48)
[2018-05-28 11:33] VITALS: BP 155/75
== END 2018-05-28 06:09 | disposition home or self-care (01) ==
LOC: SDS 06:08
PROVIDERS: ATTEND Surgery
PROC: 0FT44ZZ Resection of Gallbladder, Percutaneous Endoscopic Approach (ICD-10-PCS; principal; 2018-05-28 07:30)
DX: K80.10 Calculus of gallbladder with chronic cholecystitis without obstruction (principal); K82.8 Other specified diseases of gallbladder; K58.0 Irritable bowel syndrome with diarrhea; I10 Essential (primary) hypertension; E11.9 Type 2 diabetes mellitus without complications; E66.9 Obesity, unspecified; K21.9 Gastro-esophageal reflux disease without esophagitis; G47.30 Sleep apnea, unspecified; Z68.41 Body mass index [BMI] 40.0-44.9, adult; Z79.899 Other long term (current) drug therapy
CPT/HCPCS: 47562; 81025; J0131; J0330; J0690; J1170; J3010; J3490; J7120

== ENCOUNTER 2018-09-25 09:20 | Outpatient (CLI) | payer BC ==
[2018-09-25 11:26] LABS: T4 (THYROXINE) 10.86 ug/dL (6.09-12.23)
[2018-09-25 11:30] LABS: THYROID STIMULATING HORMONE 1.16 uIU/mL (0.34-5.60)
== END 2018-09-25 09:21 | disposition home or self-care (01) ==
LOC: LAB 09:20
PROVIDERS: ATTEND Surgery
DX: R13.10 Dysphagia, unspecified (principal); Z83.49 Family history of other endocrine, nutritional and metabolic diseases
CPT/HCPCS: 36415; 84436; 84443; 86800

== ENCOUNTER 2018-10-11 14:54 | Outpatient (CLI) | payer BC | END 2018-10-11 14:55 | disposition home or self-care (01) | LOC: SC 14:54 | PROVIDERS: ATTEND Internal Medicine Pulmonary Disease | DX: G47.33 Obstructive sleep apnea (adult) (pediatric) (principal) | CPT/HCPCS: 99212; 99213 ==

== ENCOUNTER 2018-10-23 07:56 | Outpatient (CLI) | payer BC ==
[2018-10-23 08:17] LABS: BASOPHILS # (AUTO) 0.1 10^3/uL (0.0-0.1); BASOPHILS % (AUTO) 0.7 %; EOSINOPHILS # (AUTO) 0.1 10^3/uL (0.0-0.7); EOSINOPHILS % (AUTO) 1.7 %; HGB - HEMOGLOBIN 13.4 g/dL (12.0-16.0); LYMPHOCYTES # (AUTO) 3.1 10^3/uL (1.5-3.5); LYMPHOCYTES % (AUTO) 34.9 %; MEAN CORPUSCULAR HEMOGLOBIN 29.2 pg (27.0-31.0); MEAN CORPUSCULAR HGB CONC 34.5 g/dL (32.0-36.0); MEAN CORPUSCULAR VOLUME 84.8 fL (81.0-99.0); MONOCYTES # (AUTO) 0.5 10^3/uL (0.0-1.0); MONOCYTES % (AUTO) 5.9 %; NEUTROPHILS % (AUTO) 56.8 %; PLT - PLATELET COUNT 280 10^3/uL (130-450); RED BLOOD COUNT 4.58 10^6/uL (4.20-5.40); RED CELL DISTRIBUTION WIDTH 13.9 % (12.0-15.0); WHITE BLOOD COUNT 8.8 x10^3/uL (4.8-10.8)
[2018-10-23 08:36] LABS: ALBUMIN 3.8 g/dL (3.2-5.5); ALBUMIN/GLOBULIN RATIO 1.1 (1.0-2.2); ALKALINE PHOSPHATASE 76 IU/L (42-121); ALT ALANINE AMINOTRANSFERASE 20 IU/L (10-60); AST ASPARTATE AMINOTRANSFERASE 23 IU/L (10-42); BILIRUBIN,TOTAL 0.6 mg/dL (0.2-1.0); BUN - BLOOD UREA NITROGEN 13 mg/dL (6-20); CALCIUM 8.9 mg/dL (8.5-10.3); CARBON DIOXIDE - CO2 21 mmol/L (21-32); CHLORIDE 103 mmol/L (101-111); CHOL/HDL RATIO 3.8 (<4.4); CHOLESTEROL 153 mg/dL; CREATININE 0.8 mg/dL (0.4-1.0); GFR - MDRD 78 (>89); GLUCOSE 122 mg/dL (70-100); HDL CHOLESTEROL 40 mg/dL; LDL CHOLESTEROL,CALCULATED 59 mg/dL; LDL/HDL RATIO 1.5 (<4.4); SODIUM 137 mmol/L (135-145); TOTAL PROTEIN 7.2 g/dL (6.7-8.2); VLDL CHOLESTEROL 54 mg/dL
[2018-10-23 08:43] LABS: HB2 TOTAL 14.5 g/dL; HEMOGLOBIN A1C 0.57 g/dL; HEMOGLOBIN A1C % 5.7 % (4.6-6.2)
== END 2018-10-23 07:57 | disposition home or self-care (01) ==
LOC: LAB 07:56
PROVIDERS: ATTEND Physician Assistant Medical
DX: E78.5 Hyperlipidemia, unspecified (principal); Z00.00 Encounter for general adult medical examination without abnormal findings
CPT/HCPCS: 36415; 80053; 80061; 83036; 83721; 84443; 85025

== ENCOUNTER 2018-10-25 16:30 | Outpatient (CLI) | payer BC | END 2018-10-25 23:59 | disposition home or self-care (01) | LOC: LAB.R 16:30 | PROVIDERS: ATTEND Physician Assistant Medical | DX: N39.0 Urinary tract infection, site not specified (principal) | CPT/HCPCS: 87086 ==

== ENCOUNTER 2018-11-10 08:30 | Outpatient (CLI) | payer BC | END 2018-11-10 23:59 | LOC: LAB.R 08:30 | PROVIDERS: ATTEND Family Medicine | DX: R19.7 Diarrhea, unspecified (principal) | CPT/HCPCS: 87045; 87046; 87493 ==

== ENCOUNTER 2018-11-10 08:30 | Outpatient (CLI) | payer BC | END 2018-11-10 23:59 | LOC: LAB.R 08:30 | PROVIDERS: ATTEND Family Medicine | DX: R19.7 Diarrhea, unspecified (principal) | CPT/HCPCS: 81599; 83630; 87177; 87209 ==

== ENCOUNTER 2018-11-10 09:47 | Outpatient (CLI) | payer BC ==
[2018-11-10] MEDS ORDERED: IOPAMIDOL-300 100 ML VIAL ONE (10:02)
[2018-11-10] MEDS ORDERED: IOVERSOL 320 50 ML VIAL ONE (10:03)
[2018-11-10] MEDS ORDERED: IOPAMIDOL-300 100 ML VIAL IVP ONE (12:26)
[2018-11-10] MEDS ORDERED: IOVERSOL 320 50 ML VIAL PO ONE (12:26)
--- NOTE | 2018-11-10 12:42 | CT Report ---
Reason: DIARRHEA,ABDOMINAL PAIN Procedure Date: 11/10/2018 Accession Number: [id number] / [id number] Procedure: CT - Abdomen/Pelvis W CPT Code: FULL RESULT: EXAM: CT ABDOMEN AND PELVIS EXAM DATE: 11/10/2018 11:54 AM. CLINICAL HISTORY: DIARRHEA,ABDOMINAL PAIN. COMPARISONS: ABDOMEN/PELVIS W/O 11/08/2017 1:39 AM. TECHNIQUE: Routine helical CT imaging was performed through the abdomen and pelvis. IV contrast: ISOVUE 300 100mL. Enteric contrast: Positive. Reconstructions: Coronal and sagittal. In accordance with CT protocol optimization, one or more of the following dose reduction techniques were utilized for this exam: automated exposure control, adjustment of mA and/or KV based on patient size, or use of iterative reconstructive technique. FINDINGS: Lung Bases: Lung bases are clear. Included portions of the heart are unremarkable. Liver: Normal. No masses. Gallbladder/Bile Ducts: Status post cholecystectomy. No biliary ductal dilatation. Spleen: Normal. Pancreas: Normal. Adrenal Glands: Normal. Kidneys: Bilateral nonobstructing renal calculi. No obstructing calculi. No hydronephrosis. No ureteral calculi. No CT evidence of pyelonephritis. Peritoneal Cavity/Bowel: Stomach is moderately distended. Duodenum is unremarkable. No small bowel obstruction or small bowel wall thickening. No free air. No free fluid. Tiny fatty umbilical hernia. Contrast present within the small bowel and colon. The majority of the colon is decompressed. No diverticulitis. No focal colonic wall thickening is identified. No enlarged retroperitoneal or mesenteric lymph nodes. The appendix is well visualized and normal. Pelvic Organs: Urinary bladder is mildly distended and unremarkable. No bladder calculi are identified. No adnexal masses. No pelvic free fluid. No pelvic adenopathy. Vasculature: No aneurysms or other significant abnormality. Bones: Mild degenerative changes. No acute osseous abnormalities. No distinct bony lesions. Other: None. IMPRESSION: 1. Normal appendix. 2. No bowel obstruction. No bowel wall thickening. No diverticulitis. 3. Bilateral nonobstructing renal calculi. No obstructing calculi. No hydronephrosis. No CT evidence of pyelonephritis. 4. Status post cholecystectomy. RADIA The call report notification system was initiated by Dr. Jimmy Kelly at 12:30 PM on 11/10/2018. ADDENDUM: 03/13/19 12:46 The above call report findings were discussed with Cathy Guerrero by Dr. Jimmy Kelly at 12:46 PM on 11/10/2018.
== END 2018-11-10 09:48 | disposition home or self-care (01) ==
LOC: DI 09:47
PROVIDERS: ATTEND Family Medicine
DX: R19.7 Diarrhea, unspecified (principal); R10.9 Unspecified abdominal pain; N20.0 Calculus of kidney; Z90.49 Acquired absence of other specified parts of digestive tract
CPT/HCPCS: 74177; Q9967

== ENCOUNTER 2018-11-10 13:06 | Outpatient (CLI) | payer BC ==
[2018-11-10 13:23] LABS: BASOPHILS # (AUTO) 0.1 10^3/uL (0.0-0.1); BASOPHILS % (AUTO) 0.7 %; EOSINOPHILS # (AUTO) 0.3 10^3/uL (0.0-0.7); EOSINOPHILS % (AUTO) 4.3 %; HGB - HEMOGLOBIN 13.7 g/dL (12.0-16.0); LYMPHOCYTES # (AUTO) 3.2 10^3/uL (1.5-3.5); LYMPHOCYTES % (AUTO) 39.5 %; MEAN CORPUSCULAR HEMOGLOBIN 28.4 pg (27.0-31.0); MEAN CORPUSCULAR HGB CONC 33.6 g/dL (32.0-36.0); MEAN CORPUSCULAR VOLUME 84.6 fL (81.0-99.0); MEAN PLATELET VOLUME 7.9 fL (7.9-10.8); MONOCYTES # (AUTO) 0.4 10^3/uL (0.0-1.0); MONOCYTES % (AUTO) 5.3 %; NEUTROPHILS # (AUTO) 4.1 10^3/uL (1.5-6.6); NEUTROPHILS % (AUTO) 50.2 %; PLT - PLATELET COUNT 307 10^3/uL (130-450); RED BLOOD COUNT 4.82 10^6/uL (4.20-5.40); RED CELL DISTRIBUTION WIDTH 13.7 % (12.0-15.0); WHITE BLOOD COUNT 8.1 x10^3/uL (4.8-10.8)
[2018-11-10 13:37] LABS: ALBUMIN 3.9 g/dL (3.2-5.5); ALBUMIN/GLOBULIN RATIO 1.1 (1.0-2.2); BILIRUBIN,TOTAL 0.4 mg/dL (0.2-1.0); CALCIUM 9.1 mg/dL (8.5-10.3); CREATININE 0.5 mg/dL (0.4-1.0); TOTAL PROTEIN 7.5 g/dL (6.7-8.2)
[2018-11-10 14:59] LABS: T4 (THYROXINE) 12.54 ug/dL (6.09-12.23)
[2018-11-10 15:03] LABS: THYROID STIMULATING HORMONE 1.95 uIU/mL (0.34-5.60)
== END 2018-11-10 13:07 | disposition home or self-care (01) ==
LOC: LAB 13:06
PROVIDERS: ATTEND Family Medicine
DX: R19.7 Diarrhea, unspecified (principal); R10.9 Unspecified abdominal pain; R13.10 Dysphagia, unspecified; Z83.49 Family history of other endocrine, nutritional and metabolic diseases
CPT/HCPCS: 36415; 80053; 84436; 84443; 85025; 86376; 86800

== ENCOUNTER 2018-11-11 08:00 | Outpatient (CLI) | payer BC | END 2018-11-11 08:01 | disposition home or self-care (01) | LOC: LAB 08:00 | DX: R19.7 Diarrhea, unspecified (principal) | CPT/HCPCS: 81599; 83630; 87177; 87209; 87329 ==

== ENCOUNTER 2018-12-01 17:30 | Outpatient (CLI) | payer BC | END 2018-12-01 17:31 | disposition home or self-care (01) | LOC: LAB 17:30 | PROVIDERS: ATTEND Surgery | DX: R19.7 Diarrhea, unspecified (principal); R10.9 Unspecified abdominal pain ==

== ENCOUNTER 2018-12-02 07:50 | Outpatient (CLI) | payer BC | END 2018-12-02 07:51 | disposition home or self-care (01) | LOC: LAB 07:50 | PROVIDERS: ATTEND Surgery | DX: R19.7 Diarrhea, unspecified (principal); R10.9 Unspecified abdominal pain | CPT/HCPCS: 36415; 81599; 82941; 86316 ==

== ENCOUNTER 2018-12-17 08:28 | Day surgery (SDC) | payer BC ==
[2018-12-17 08:49] LABS: HCG UR QUAL NEGATIVE
[2018-12-17] MEDS ORDERED: LACTATED RINGERS 1,000 ML IV ONE ×3 (08:53→10:34)
[2018-12-17] MEDS ORDERED: LIDO GARGLE 30 ML BOTTLE ONE (09:35)
[2018-12-17] MEDS ORDERED: fentaNYL 100 MCG/2 ML VIAL IVP ONE (09:40)
[2018-12-17] MEDS ORDERED: fentaNYL 250 MCG/5 ML VIAL IVP ONE (09:40)
[2018-12-17] MEDS ORDERED: MIDAZOLAM 2 MG/2 ML VIAL IVP ONE (09:40)
[2018-12-17] MEDS ORDERED: LIDO GARGLE 30 ML BOTTLE PO ONE (09:52)
[2018-12-17] MEDS ORDERED: BENZOCAINE/TETRACAINE/BUTAMBEN 20 GM TOP ONE (09:52)
[2018-12-17 11:17] VITALS: BP 126/65
== END 2018-12-17 08:29 | disposition home or self-care (01) ==
LOC: SDS 08:28
PROVIDERS: ATTEND Surgery
PROC: 0DBN8ZX Excision of Sigmoid Colon, Via Natural or Artificial Opening Endoscopic, Diagnostic (ICD-10-PCS; 2018-12-17)
PROC: 0DB98ZX Excision of Duodenum, Via Natural or Artificial Opening Endoscopic, Diagnostic (ICD-10-PCS; 2018-12-17)
PROC: 0DB78ZX Excision of Stomach, Pylorus, Via Natural or Artificial Opening Endoscopic, Diagnostic (ICD-10-PCS; 2018-12-17)
PROC: 0DB58ZX Excision of Esophagus, Via Natural or Artificial Opening Endoscopic, Diagnostic (ICD-10-PCS; 2018-12-17)
PROC: 0DBH8ZX Excision of Cecum, Via Natural or Artificial Opening Endoscopic, Diagnostic (ICD-10-PCS; principal; 2018-12-17 09:45)
PROC: 0DBL8ZX Excision of Transverse Colon, Via Natural or Artificial Opening Endoscopic, Diagnostic (ICD-10-PCS; 2018-12-17 09:45)
DX: R19.7 Diarrhea, unspecified (principal); R10.9 Unspecified abdominal pain; K21.9 Gastro-esophageal reflux disease without esophagitis; K64.8 Other hemorrhoids; K29.50 Unspecified chronic gastritis without bleeding; Z80.0 Family history of malignant neoplasm of digestive organs; I10 Essential (primary) hypertension; E11.9 Type 2 diabetes mellitus without complications
CPT/HCPCS: 43239; 45380; 81025; A9270; J3010; J7120

== ENCOUNTER 2019-01-07 16:24 | Outpatient (CLI) | payer BC ==
--- NOTE | 2019-01-10 09:37 | Mammography Report ---
Reason: SCREENING MAMMO Procedure Date: 01/07/2019 Accession Number: [id number] / [id number] Procedure: LASHA - Screening Mammo w/Arsen CPT Code: FULL RESULT: EXAM: Screening Mammo w/Arsen DATE: 01/07/2019 4:48 PM CLINICAL HISTORY: Routine screening. No reported personal or family history of breast cancer. TECHNIQUE: (B) - Bilateral CC and MLO views were obtained. COMPARISON: 12/05/2015 PARENCHYMAL PATTERN: (D) - The breasts demonstrate heterogeneously dense fibroglandular parenchyma bilaterally. FINDINGS: Bilateral breasts: There are no suspicious masses, calcifications, or areas of distortion. IMPRESSION: Negative examination. BI-RADS category 1. RECOMMENDATION: (ANNUAL) - Recommend routine annual screening mammography. BI-RADS CATEGORY: (1) - Negative. STANDARD QUALIFYING STATEMENTS: 1. This examination was not reviewed with the aid of Computer-Aided Detection (CAD). 2. A negative or benign imaging report should not preclude biopsy if clinically suspicious findings are present. 3. Dense breasts may obscure an underlying neoplasm. 4. This examination was reviewed with the aid of 3D breast imaging (tomosynthesis).
== END 2019-01-07 16:25 | disposition home or self-care (01) ==
LOC: DI 16:24
DX: Z12.31 Encounter for screening mammogram for malignant neoplasm of breast (principal)
CPT/HCPCS: 77063; 77067

== ENCOUNTER 2019-01-27 08:00 | Outpatient (CLI) | payer BC ==
[2019-01-27 14:48] LABS: BILIRUBIN,URINE NEGATIVE (NEGATIVE); GLUCOSE, URINE (UA) NEGATIVE (NEGATIVE); KETONES,URINE (UA) NEGATIVE (NEGATIVE); LEUKOCYTE ESTERASE, URINE NEGATIVE (NEGATIVE); NITRITE,URINE NEGATIVE (NEGATIVE); OCCULT BLOOD,URINE SMALL (NEGATIVE); PROTEIN,URINE NEGATIVE (NEGATIVE); UROBILINOGEN,URINE 0.2 (NORMAL) E.U./dL (NORMAL)
[2019-01-27 15:44] LABS: AMORPHOUS SEDIMENT,UR Few /LPF; BACTERIA,URINE None Seen /HPF (None Seen); CLARITY,URINE CLEAR (CLEAR); MUCUS,URINE Few Strands; RBC,URINE 0-5 /HPF (0-5); SQUAMOUS EPITHELIAL CELL,UR FEW Squamous (<= Few)
== END 2019-01-27 23:59 | disposition home or self-care (01) ==
LOC: LAB.R 08:00
PROVIDERS: ATTEND Obstetrics & Gynecology
DX: R32 Unspecified urinary incontinence (principal); R10.9 Unspecified abdominal pain
CPT/HCPCS: 81001; 87086

== ENCOUNTER 2019-06-19 13:49 | Emergency (ER) | payer BC ==
[2019-06-19 14:28] LABS: BILIRUBIN,URINE NEGATIVE (NEGATIVE); GLUCOSE, URINE (UA) NEGATIVE (NEGATIVE); KETONES,URINE (UA) TRACE mg/dL (NEGATIVE); LEUKOCYTE ESTERASE, URINE TRACE (NEGATIVE); NITRITE,URINE NEGATIVE (NEGATIVE); OCCULT BLOOD,URINE LARGE (NEGATIVE); PROTEIN,URINE NEGATIVE (NEGATIVE); UROBILINOGEN,URINE 0.2 (NORMAL) E.U./dL (NORMAL)
[2019-06-19 14:29] LABS: CLARITY,URINE CLOUDY (CLEAR)
--- NOTE | 2019-06-19 14:29 | ED Physician Documentation ---
PD HPI ABD PAIN - Stated complaint Stated Complaint: SIDE PX/BLOOD W/URINATION - Chief complaint Chief Complaint: Abd Pain - History obtained from History obtained from: Patient - History of Present Illness Timing - onset: How many days ago (few) Timing - duration: Days (few) Timing - details: Abrupt onset (onset left flnak and abd pain few days ago, w hich has persisted. Presumed kidney stone as has had them in the past. Seen by PCP and Rx Zofran, flomax, tramadol. States the pharmacy had not filled them as yet, and was hurting worse, so here for treatment. Is having right mid abd pain as well, so concerned about stone on that side as well.), Still present Quality: Aching, Sharp, Pain Location: LLQ (worst pain in left sided, but having some on right lower abd as well.) Radiation: Left flank Associated symptoms: Nausea, Hematuria. No: Fever, Vomiting, Diarrhea, Constipation, Dysuria Similar symptoms before: Diagnosis (kidney stones, with Urologist Dr. Mcmanus.) Recently seen: Not recently seen Review of Systems Constitutional: denies: Fever, Chills, Myalgias Nose: denies: Rhinorrhea / runny nose, Congestion Throat: denies: Sore throat Respiratory: denies: Dyspnea, Cough GI: reports: Abdominal Pain, Nausea. denies: Vomiting : reports: Hematuria. denies: Dysuria, Frequency Skin: denies: Rash, Lesions PD PAST MEDICAL HISTORY - Past Medical History Cardiovascular: Hypertension Respiratory: None Neuro: None Endocrine/Autoimmune: None GI: None INDUSTRIAL WELDER: None : None, Kidney stones HEENT: None Psych: None Musculoskeletal: None Derm: None - Past Surgical History Past Surgical History: Yes General: Cholecystectomy Ortho: Shoulder arthroplasty /INDUSTRIAL WELDER: Hysterectomy, Other HEENT: Tonsil/Adenoidectomy - Present Medications Home Medications: Ambulatory Orders Medication Instructions Recorded Confirmed Famotidine 20 mg PO DAILY 05/27/18 11/10/18 Lisinopril 20 mg PO DAILY 05/27/18 11/10/18 Omeprazole 20 mg PO DAILY 05/27/18 11/10/18 Loperamide [Imodium] 2 mg PO DAILY PRN 11/10/18 11/10/18 Estradiol 0.05 mg Patch [Climara 1 each TOP 06/19/19 06/19/19 0.05 mg] Oxycodone HCl/Acetaminophen 1 each PO Q4H PRN #20 tablet 06/19/19 [Oxycodon-Acetaminophen 7.5-325] dexAMETHasone [Decadron] 4 mg PO DAILY #5 tablet 06/19/19 - Allergies Allergies/Adverse Reactions: Allergies Allergy/AdvReac Type Severity Reaction Status Date / Time hydrocodone bitartrate * AdvReac Severe Nausea Verified 11/08/17 00:17 [From Vicodin] adhesive tape AdvReac Rash Verified 06/19/19 13:55 - Social History Does the pt smoke?: No Smoking Status: Never smoker Does the pt drink ETOH?: No Does the pt have substance abuse?: No - Immunizations Immunizations are current?: Yes - POLST Patient has POLST: No PD ED PE NORMAL - Vitals Vital signs reviewed: Yes - General General: Alert and oriented X 3, No acute distress, Well developed/nourished - HEENT HEENT: Pharynx benign - Neck Neck: Supple, no meningeal sign, No adenopathy - Cardiac Cardiac: RRR, No murmur - Respiratory Respiratory: Clear bilaterally - Abdomen Abdomen: Normal bowel sounds, Soft, Non distended, No organomegaly, Other (tender both left and right low abd, left worse. with some guarding. No percussion tenderness. Left CVA tender to percussion. ) - Female Female : Deferred - Rectal Rectal: Deferred - Back Back: Other (left CVA tender) - Derm Derm: Normal color, Warm and dry - Extremities Extremities: No tenderness to palpate, Normal ROM s pain, No edema - Neuro Neuro: Alert and oriented X 3, No motor deficit, Normal speech Results - Vitals Vitals: Vital Signs - 24 hr 06/19/19 06/19/19 06/19/19 13:53 15:02 16:03 Temperature 36.8 C Heart Rate 88 83 80 Respiratory 22 18 18 Rate Blood Pressure 181/97 H 174/89 H 160/86 H O2 Saturation 98 96 97 06/19/19 06/19/19 16:37 17:06 Temperature 36.5 C Heart Rate 78 77 Respiratory 18 18 Rate Blood Pressure 156/83 H 162/91 H O2 Saturation 96 93 Oxygen O2 Source Room air - Labs Labs: Laboratory Tests 06/19/19 06/19/19 06/19/19 14:05 14:49 14:49 WBC 11.2 H RBC 4.29 Hgb 12.4 Hct 37.6 MCV 87.6 MCH 28.9 MCHC 33.0 RDW 12.8 Plt Count 268 MPV 10.6 Neut # (Auto) 7.5 H Lymph # (Auto) 2.8 [place] # (Auto) 0.6 Eos # (Auto) 0.1 Baso # (Auto) 0.1 Absolute Nucleated RBC 0.00 Nucleated RBC % 0.0 Sodium 137 Potassium 3.9 Chloride 102 Carbon Dioxide 23 Anion Gap 12.0 BUN 21 H Creatinine 1.1 H Estimated GFR (MDRD) 53 L Glucose 179 H Calcium 9.6 Total Bilirubin 0.7 AST 35 ALT 47 Alkaline Phosphatase 92 Total Protein 6.9 Albumin 4.0 Globulin 2.9 Albumin/Globulin Ratio 1.4 Lipase 52 H Urine Color YELLOW Urine Clarity CLOUDY Urine pH 6.0 Ur Specific [place] 1.010 Urine Protein NEGATIVE Urine Glucose (UA) NEGATIVE Urine Ketones TRACE Urine Occult Blood LARGE H Urine Nitrite NEGATIVE Urine Bilirubin NEGATIVE Urine Urobilinogen 0.2 (NORMAL) Ur Leukocyte Esterase TRACE H Urine RBC TNTC H Urine WBC >25 H Ur Squamous Epith Cells MOD Squamous H Urine Bacteria Moderate H Ur Microscopic Review INDICATED Urine Culture Comments NOT INDICATED - Rads (name of study) KUB CT Radiology: Prelim report reviewed (no right ureteral stones nor other acute process. Left distal ureteral stone 4 mm with mild obstruction. ), See rad report PD MEDICAL DECISION MAKING - ED course Complexity details: reviewed results, re-evaluated patient (improved pain enough with IV meds. Feels improved for discharge. ), considered differential, d/w patient Departure - Departure Disposition: 01 Home, Self Care Clinical Impression: Flank pain, Ureterolithiasis Condition: Stable Record reviewed to determine appropriate education?: Yes Instructions: ED Stone Renal W Colic Follow-Up: Elif Fournier PA-C [Primary Care Provider] - Shaun Mcmanus MD [Provider Admit Priv/Credential] - Prescriptions: dexAMETHasone [Decadron] 4 mg PO DAILY #5 tablet Oxycodone HCl/Acetaminophen [Oxycodon-Acetaminophen 7.5-325] 1 each PO Q4H PRN #20 tablet PRN Reason: Pain Comments: Adequate hydration. Ondansetron if needed for nausea as you have at home. Continue the Flomax daily for the next several days. Tylenol if needed for mild pains. Add Decadron steroid for inflammation of the ureter as well daily for the next several days. Add oxycodone as needed for pain as prescribed. Contact Dr. Mcmanus regarding this for follow-up. You are passing a stone on the left and is almost to the bladder. There are no stones on the right. The CT did not show any other abnormality to account for pain on the right. Discharge Date/Time: 06/19/19 17:07
[2019-06-19] MEDS ORDERED: SODIUM CHLORIDE 0.9% 1,000 ML IV ONE (14:37)
[2019-06-19 14:38] LABS: BACTERIA,URINE Moderate /HPF (None Seen); RBC,URINE TNTC /HPF (0-5); SQUAMOUS EPITHELIAL CELL,UR MOD Squamous (<= Few)
[2019-06-19] MEDS ORDERED: KETOROLAC 30 MG/ML VIAL IVP STA (14:38)
[2019-06-19] MEDS ORDERED: diphenhydrAMINE INJ 50 MG/ML VIAL IVP STA (14:38)
[2019-06-19] MEDS ORDERED: ONDANSETRON 4 MG/2 ML VIAL IVP STA ×2 (14:38→16:57)
[2019-06-19] MEDS ORDERED: HYDROmorphone 2 MG/ML VIAL IVP STA ×2 (14:38→16:15)
[2019-06-19 15:10] LABS: ALBUMIN/GLOBULIN RATIO 1.4 (1.0-2.2); BILIRUBIN,TOTAL 0.7 mg/dL (0.2-1.0); CALCIUM 9.6 mg/dL (8.5-10.3); CREATININE 1.1 mg/dL (0.4-1.0); TOTAL PROTEIN 6.9 g/dL (6.7-8.2)
[2019-06-19 15:28] LABS: BASOPHILS # (AUTO) 0.1 10^3/uL (0.0-0.1); BASOPHILS % (AUTO) 0.5 %; EOSINOPHILS # (AUTO) 0.1 10^3/uL (0.0-0.7); EOSINOPHILS % (AUTO) 1.3 %; HGB - HEMOGLOBIN 12.4 g/dL (12.0-16.0); LYMPHOCYTES # (AUTO) 2.8 10^3/uL (1.5-3.5); LYMPHOCYTES % (AUTO) 24.8 %; MEAN CORPUSCULAR HEMOGLOBIN 28.9 pg (27.0-31.0); MEAN CORPUSCULAR VOLUME 87.6 fL (81.0-99.0); MEAN PLATELET VOLUME 10.6 fL (7.9-10.8); MONOCYTES # (AUTO) 0.6 10^3/uL (0.0-1.0); MONOCYTES % (AUTO) 5.4 %; NEUTROPHILS # (AUTO) 7.5 10^3/uL (1.5-6.6); NEUTROPHILS % (AUTO) 66.7 %; PLT - PLATELET COUNT 268 10^3/uL (130-450); RED BLOOD COUNT 4.29 10^6/uL (4.20-5.40); RED CELL DISTRIBUTION WIDTH 12.8 % (12.0-15.0); WHITE BLOOD COUNT 11.2 x10^3/uL (4.8-10.8)
[2019-06-19] MEDS ORDERED: HYDROmorphone 1 MG/ML CARPUJECT IVP STA (15:29)
[2019-06-19] MEDS ORDERED: TAMSULOSIN 0.4 MG CAPSULE PO STA (15:51)
[2019-06-19] MEDS ORDERED: DEXAMETHASONE 10 MG/ML VIAL IVP STA (15:51)
--- NOTE | 2019-06-19 16:01 | CT Report ---
Reason: increased pain flanks; history of stones Procedure Date: 06/19/2019 Accession Number: [id number] / [id number] Procedure: CT - Abdomen/Pelvis WO CPT Code: FULL RESULT: EXAM: CT ABDOMEN AND PELVIS (CT KUB) EXAM DATE: 06/19/2019 03:22 PM. CLINICAL HISTORY: Increased pain flanks; history of stones. COMPARISONS: ABDOMEN/PELVIS W/ 11/10/2018 11:49 AM ABDOMEN/PELVIS W/O 11/08/2017 1:39 AM. TECHNIQUE: Routine axial helical CT imaging was performed through the abdomen and pelvis without IV contrast. Reconstructions: Coronal and sagittal. In accordance with CT protocol optimization, one or more of the following dose reduction techniques were utilized for this exam: automated exposure control, adjustment of mA and/or KV based on patient size, or use of iterative reconstructive technique. FINDINGS: Evaluation of solid abdominal organs is limited without intravenous contrast. Lung Bases: Unremarkable. Right Kidney/Ureter: There are at least 5 nonobstructing stones, mostly in inferior calyces. The largest measures 4-5 mm. No hydronephrosis or perinephric inflammation. No ureteral stone. Left Kidney/Ureter: There is mild left hydronephrosis and hydroureter with minimal perinephric inflammation. Obstructive stone in the distal left ureter measures 7 x 4 mm (image 122 series 3). There are at least 7 nonobstructing left renal stones. The largest inferiorly measure 7 mm and 8 mm respectively. Other Solid Organs: The liver is enlarged, measuring 22 cm in length. Moderate to marked proximal mild hypoattenuation. There are small high attenuation nodules in the left lobe measuring 1.7 and 1.4 cm, which may represent areas of fatty sparing. This is more conspicuous from priors. Solid organs otherwise grossly unremarkable. Gallbladder/Bile Ducts: Cholecystectomy. Peritoneal Cavity: No free fluid or free air. Pelvic Organs: No bladder stones or wall thickening. Uterus is absent. Vasculature: Unremarkable. Other: None. IMPRESSION: 1. Mildly obstructing distal left ureteral stone measures 7 x 4 mm. There are multiple bilateral nonobstructing renal stones. 2. Hepatomegaly with marked fatty infiltration. Small high attenuation nodules in the left lobe are more conspicuous from priors and could represent focal fatty sparing. Follow-up liver MR in 3-6 months could further assess. RADIA
[2019-06-19 17:08] VITALS: BP 162/91
== END 2019-06-19 17:07 | disposition home or self-care (01) ==
LOC: ED 13:49
DX: N20.1 Calculus of ureter (principal); I10 Essential (primary) hypertension; R10.30 Lower abdominal pain, unspecified; Z87.442 Personal history of urinary calculi
CPT/HCPCS: 36415; 74176; 80053; 81001; 83690; 85025; 96361; 96374; 96375; 96376; 99284; 99285; A9270; J1170; J1200; 81003; 87086

== ENCOUNTER 2019-06-21 06:17 | Emergency (ER) | payer BC ==
[2019-06-21] MEDS ORDERED: ONDANSETRON 4 MG/2 ML VIAL IVP STA ×2 (07:01→09:04)
[2019-06-21] MEDS ORDERED: HYDROmorphone 1 MG/ML CARPUJECT IVP STA (07:01)
[2019-06-21 07:08] LABS: BASOPHILS # (AUTO) 0.1 10^3/uL (0.0-0.1); BASOPHILS % (AUTO) 0.5 %; EOSINOPHILS # (AUTO) 0.1 10^3/uL (0.0-0.7); EOSINOPHILS % (AUTO) 0.4 %; HGB - HEMOGLOBIN 12.7 g/dL (12.0-16.0); LYMPHOCYTES % (AUTO) 32.4 %; MEAN CORPUSCULAR HEMOGLOBIN 29.5 pg (27.0-31.0); MEAN CORPUSCULAR HGB CONC 32.9 g/dL (32.0-36.0); MEAN CORPUSCULAR VOLUME 89.6 fL (81.0-99.0); MEAN PLATELET VOLUME 10.4 fL (7.9-10.8); MONOCYTES # (AUTO) 0.7 10^3/uL (0.0-1.0); MONOCYTES % (AUTO) 5.7 %; NEUTROPHILS # (AUTO) 7.3 10^3/uL (1.5-6.6); NEUTROPHILS % (AUTO) 58.7 %; PLT - PLATELET COUNT 293 10^3/uL (130-450); RED BLOOD COUNT 4.31 10^6/uL (4.20-5.40); RED CELL DISTRIBUTION WIDTH 12.8 % (12.0-15.0); WHITE BLOOD COUNT 12.3 x10^3/uL (4.8-10.8)
[2019-06-21 07:24] LABS: ALBUMIN 3.9 g/dL (3.2-5.5); ALBUMIN/GLOBULIN RATIO 1.3 (1.0-2.2); BILIRUBIN,TOTAL 0.5 mg/dL (0.2-1.0); CALCIUM 8.8 mg/dL (8.5-10.3); CREATININE 0.8 mg/dL (0.4-1.0); TOTAL PROTEIN 6.8 g/dL (6.7-8.2)
[2019-06-21] MEDS ORDERED: SODIUM CHLORIDE 0.9% 1,000 ML IV ONE ×2 (07:46)
--- NOTE | 2019-06-21 08:01 | ED Physician Documentation ---
History of Present Illness - Stated complaint Stated Complaint: RT SIDE PX - Chief complaint Chief Complaint: Abd Pain - History obtained from History obtained from: Patient - History of Present Illness Timing: How many days ago (2) Pain level max: 9 Pain level now: 9 Improved by: nothing Worsened by: nothing - Additonal information Additional information: Left flank pain for the past several days. Seen here a few days ago and diagnosed with a 7 x 4 mm distal left ureteral stone. She states her pain is not controlled at home with Percocet. She sees Dr. Mcmanus, urology at [facility]. Has a long history of ureteral stones and multiple stents. No fevers. No vomiting. Review of Systems Ten Systems: 10 systems reviewed and negative Constitutional: denies: Fever, Chills Cardiac: denies: Chest pain / pressure Respiratory: denies: Cough GI: reports: Diarrhea (Chronic). denies: Vomiting Skin: denies: Rash Musculoskeletal: denies: Neck pain, Back pain Neurologic: denies: Headache PD PAST MEDICAL HISTORY - Past Medical History Cardiovascular: Hypertension Respiratory: None Neuro: None Endocrine/Autoimmune: None GI: None MANAGER EDUCATIONAL: None : None, Kidney stones HEENT: None Psych: None Musculoskeletal: None Derm: None - Past Surgical History Past Surgical History: Yes General: Cholecystectomy Ortho: Shoulder arthroplasty /MANAGER EDUCATIONAL: Hysterectomy, Other HEENT: Tonsil/Adenoidectomy - Present Medications Home Medications: Ambulatory Orders Medication Instructions Recorded Confirmed Famotidine 20 mg PO DAILY 05/27/18 11/10/18 Lisinopril 20 mg PO DAILY 05/27/18 11/10/18 Omeprazole 20 mg PO DAILY 05/27/18 11/10/18 Loperamide [Imodium] 2 mg PO DAILY PRN 11/10/18 11/10/18 Estradiol 0.05 mg Patch [Climara 1 each TOP 06/19/19 06/19/19 0.05 mg] Oxycodone HCl/Acetaminophen 1 each PO Q4H PRN #20 tablet 06/19/19 [Oxycodon-Acetaminophen 7.5-325] dexAMETHasone [Decadron] 4 mg PO DAILY #5 tablet 06/19/19 - Allergies Allergies/Adverse Reactions: Allergies Allergy/AdvReac Type Severity Reaction Status Date / Time hydrocodone bitartrate * AdvReac Severe Nausea Verified 06/21/19 06:25 [From Vicodin] adhesive tape AdvReac Rash Verified 06/21/19 06:25 - Social History Does the pt smoke?: No Smoking Status: Never smoker Does the pt drink ETOH?: No Does the pt have substance abuse?: No - Immunizations Immunizations are current?: Yes - POLST Patient has POLST: No PD ED PE NORMAL - Vitals Vital signs reviewed: Yes - General General: Alert and oriented X 3, No acute distress, Well developed/nourished - HEENT HEENT: Moist mucous membranes - Neck Neck: Supple, no meningeal sign - Cardiac Cardiac: RRR, Strong equal pulses - Respiratory Respiratory: No respiratory distress, Clear bilaterally - Abdomen Abdomen: Soft, Non tender, Non distended - Back Back: No CVA TTP, No spinal TTP - Derm Derm: Warm and dry - Extremities Extremities: No calf tenderness / cord - Neuro Neuro: Alert and oriented X 3 - Psych Psych: Normal mood, Normal affect Results - Vitals Vitals: Vital Signs - 24 hr 06/21/19 06/21/19 06/21/19 09:05 11:14 11:15 Temperature Heart Rate 67 76 72 Respiratory 13 14 16 Rate Blood Pressure 161/103 H 165/125 H O2 Saturation 97 98 98 06/21/19 12:50 Temperature 36.6 C Heart Rate 65 Respiratory 14 Rate Blood Pressure 131/66 H O2 Saturation 96 Oxygen O2 Source Room air - EKG (time done) 0737 Rate: Rate (enter#) (75) Rhythm: NSR Animas: Normal Intervals: Normal IA QRS: Normal Ischemia: Normal ST segments, Q waves (III, aVF) - Labs Labs: Laboratory Tests 06/21/19 06/21/19 06/21/19 06:30 06:30 08:22 WBC 12.3 H RBC 4.31 Hgb 12.7 Hct 38.6 MCV 89.6 MCH 29.5 MCHC 32.9 RDW 12.8 Plt Count 293 MPV 10.4 Neut # (Auto) 7.3 H Lymph # (Auto) 4.0 H [place] # (Auto) 0.7 Eos # (Auto) 0.1 Baso # (Auto) 0.1 Absolute Nucleated RBC 0.00 Nucleated RBC % 0.0 Sodium 137 Potassium 3.8 Chloride 103 Carbon Dioxide 24 Anion Gap 10.0 BUN 20 Creatinine 0.8 Estimated GFR (MDRD) 77 L Glucose 121 H Calcium 8.8 Total Bilirubin 0.5 AST 25 ALT 41 Alkaline Phosphatase 84 Total Protein 6.8 Albumin 3.9 Globulin 2.9 Albumin/Globulin Ratio 1.3 Lipase 47 Urine Color YELLOW Urine Clarity HAZY Urine pH 6.0 Ur Specific [place] 1.010 Urine Protein NEGATIVE Urine Glucose (UA) NEGATIVE Urine Ketones NEGATIVE Urine Occult Blood LARGE H Urine Nitrite NEGATIVE Urine Bilirubin NEGATIVE Urine Urobilinogen 0.2 (NORMAL) Ur Leukocyte Esterase NEGATIVE Urine RBC TNTC H Urine WBC 4-5 Ur Squamous Epith Cells MOD Squamous H Urine Bacteria Rare Ur Microscopic Review INDICATED Urine Culture Comments NOT INDICATED - Rads (name of study) kub Radiology: Prelim report reviewed, EMP read contemporaneously, See rad report (3 mm distal left ureter stone. Left kidney stones. ) PD MEDICAL DECISION MAKING - ED course Complexity details: reviewed results, re-evaluated patient, considered differential, d/w patient, d/w legal nurse consultant ED course: 44-year-old female with kidney and ureteral stones. Pain well controlled here. I discussed the case with Dr. Mcmanus, urology on-call who requests a KUB for follow-up in the office. He will see her tomorrow in the office. Patient is comfortable with this plan. She is not infected at this time. No fevers. No vomiting. She is well-appearing, nontoxic. Patient counseled regarding signs and symptoms for which I believe and urgent re-evaluation would be necessary. Patient with good understanding of and agreement to plan and is comfortable going home at this time This document was made in part using voice recognition software. While efforts are made to proofread this document, sound alike and grammatical errors may occur. Departure - Departure Disposition: 01 Home, Self Care Clinical Impression: Ureteral stone Condition: Good Instructions: ED Stone Renal W Colic Follow-Up: Shaun Mcmanus MD [Physician No Access] - Tomorrow Comments: Follow-up with Dr. Mcmanus tomorrow in his [place] office. Return if you worsen. Continue your medications at home. Forms: Activity restrictions Discharge Date/Time: 06/21/19 12:56
[2019-06-21] MEDS ORDERED: KETOROLAC 30 MG/ML VIAL IVP STA (08:11)
[2019-06-21 08:35] LABS: BILIRUBIN,URINE NEGATIVE (NEGATIVE); GLUCOSE, URINE (UA) NEGATIVE (NEGATIVE); KETONES,URINE (UA) NEGATIVE (NEGATIVE); LEUKOCYTE ESTERASE, URINE NEGATIVE (NEGATIVE); NITRITE,URINE NEGATIVE (NEGATIVE); OCCULT BLOOD,URINE LARGE (NEGATIVE); PROTEIN,URINE NEGATIVE (NEGATIVE); UROBILINOGEN,URINE 0.2 (NORMAL) E.U./dL (NORMAL)
[2019-06-21 08:36] LABS: CLARITY,URINE HAZY (CLEAR)
[2019-06-21 08:40] LABS: RBC,URINE TNTC /HPF (0-5); SQUAMOUS EPITHELIAL CELL,UR MOD Squamous (<= Few)
[2019-06-21 08:41] LABS: BACTERIA,URINE Rare /HPF (None Seen)
[2019-06-21] MEDS ORDERED: MORPHINE 2 MG/ML CARPUJECT IVP STA (09:23)
[2019-06-21] MEDS ORDERED: TAMSULOSIN 0.4 MG CAPSULE PO STA (10:33)
[2019-06-21 12:51] VITALS: BP 131/66
--- NOTE | 2019-06-21 13:08 | XRAY Report ---
Reason: ureteral stone, urology request Procedure Date: 06/21/2019 Accession Number: [id number] / [id number] Procedure: XR - Abdomen 1 View X-Ray CPT Code: 75601 FULL RESULT: EXAM: ABDOMEN RADIOGRAPHY EXAM DATE: 06/21/2019 12:20 PM. CLINICAL HISTORY: Ureteral stone, urology request. COMPARISON: ABDOMEN 1 VIEW 02/24/2013 5:46 PM ABDOMEN/PELVIS W/O 06/19/2019 3:18 PM. TECHNIQUE: 1 view. FINDINGS: Bowel Gas Pattern: No dilated bowel loops. There are surgical clips in the right upper quadrant of the abdomen. Other: There are 2 dominant stones in the right kidney. There is a mid pole 5 mm stone and a lower pole 4 mm stone. There is a 3 mm stone overlying the distal left ureter located inferior to the level of the left sacrum. IMPRESSION: 3 mm distal left ureter stone. Left kidney stones. RADIA
== END 2019-06-21 12:56 | disposition home or self-care (01) ==
LOC: ED 06:17
DX: N20.2 Calculus of kidney with calculus of ureter (principal); Z87.442 Personal history of urinary calculi; I10 Essential (primary) hypertension
CPT/HCPCS: 36415; 74018; 80053; 81001; 83690; 85025; 93005; 99284; A9270; J1170; 81003; 87086

== ENCOUNTER 2019-07-21 17:11 | Outpatient (CLI) | payer BC ==
[2019-07-21 17:25] LABS: BASOPHILS # (AUTO) 0.1 10^3/uL (0.0-0.1); BASOPHILS % (AUTO) 0.9 %; EOSINOPHILS # (AUTO) 0.3 10^3/uL (0.0-0.7); EOSINOPHILS % (AUTO) 2.7 %; HGB - HEMOGLOBIN 13.2 g/dL (12.0-16.0); LYMPHOCYTES # (AUTO) 3.9 10^3/uL (1.5-3.5); LYMPHOCYTES % (AUTO) 37.3 %; MEAN CORPUSCULAR HEMOGLOBIN 29.4 pg (27.0-31.0); MEAN CORPUSCULAR HGB CONC 32.8 g/dL (32.0-36.0); MEAN CORPUSCULAR VOLUME 89.5 fL (81.0-99.0); MONOCYTES # (AUTO) 0.9 10^3/uL (0.0-1.0); MONOCYTES % (AUTO) 8.2 %; NEUTROPHILS # (AUTO) 5.1 10^3/uL (1.5-6.6); NEUTROPHILS % (AUTO) 49.4 %; PLT - PLATELET COUNT 292 10^3/uL (130-450); RED BLOOD COUNT 4.49 10^6/uL (4.20-5.40); RED CELL DISTRIBUTION WIDTH 12.9 % (12.0-15.0); WHITE BLOOD COUNT 10.4 x10^3/uL (4.8-10.8)
[2019-07-21 17:39] LABS: ALBUMIN 4.3 g/dL (3.2-5.5); ALBUMIN/GLOBULIN RATIO 1.3 (1.0-2.2); BILIRUBIN,TOTAL 0.5 mg/dL (0.2-1.0); CALCIUM 9.4 mg/dL (8.5-10.3); CREATININE 0.8 mg/dL (0.4-1.0); TOTAL PROTEIN 7.5 g/dL (6.7-8.2)
== END 2019-07-21 17:12 | disposition home or self-care (01) ==
LOC: LAB 17:11
PROVIDERS: ATTEND Physician Assistant Medical
DX: R07.9 Chest pain, unspecified (principal)
CPT/HCPCS: 36415; 80053; 85025; 85379

== ENCOUNTER 2019-07-22 16:36 | Outpatient (CLI) | payer BC ==
--- NOTE | 2019-07-24 01:00 | XRAY Report ---
Reason: CHEST PAIN Procedure Date: 07/22/2019 Accession Number: [id number] / [id number] Procedure: XR - Chest 2 View X-Ray CPT Code: 74997 Final Report FULL RESULT: EXAM: CHEST RADIOGRAPHY EXAM DATE: 07/22/2019 04:46 PM. CLINICAL HISTORY: CHEST PAIN. COMPARISON: CHEST 2 VIEW PA/LAT 02/14/2017 8:40 AM. TECHNIQUE: 2 views. FINDINGS: Lungs/Pleura: No focal opacities evident. No pleural effusion. No pneumothorax. Normal volumes. Mediastinum: Heart and mediastinal contours are unremarkable. IMPRESSION: No acute cardiopulmonary disease seen. RADIA
== END 2019-07-22 16:37 | disposition home or self-care (01) ==
LOC: DI 16:36
PROVIDERS: ATTEND Physician Assistant Medical
DX: R07.9 Chest pain, unspecified (principal)
CPT/HCPCS: 71046

== ENCOUNTER 2019-09-26 16:45 | Outpatient (CLI) | payer BC ==
--- NOTE | 2019-09-27 15:53 | XRAY Report ---
Reason: RENAL CALCULUS Procedure Date: 09/26/2019 Accession Number: [id number] / [id number] Procedure: XR - Abdomen 1 View X-Ray CPT Code: 87088 Final Report FULL RESULT: EXAM: ABDOMEN RADIOGRAPHY EXAM DATE: 09/26/2019 05:07 PM. CLINICAL HISTORY: Renal calculus. COMPARISON: ABDOMEN 1 VIEW 06/21/2019 11:51 AM. TECHNIQUE: Supine, 1 view. FINDINGS: Bowel Gas Pattern: Unremarkable. No dilatation. Other: Again demonstrated left nephrolithiasis with 2 dominant stones measuring 5-6 mm and 4 mm in left mid/lower poles. No right nephrolithiasis. Previously described distal left ureteral calculus not seen. Cholecystectomy clips. IMPRESSION: 1. Similar left nephrolithiasis. 2. Clearing of previous distal left ureteral stone. RADIA
== END 2019-09-26 16:46 | disposition home or self-care (01) ==
LOC: DI 16:45
PROVIDERS: ATTEND Urology
DX: N20.0 Calculus of kidney (principal)
CPT/HCPCS: 74018

== ENCOUNTER 2019-10-21 08:00 | Outpatient (CLI) | payer BC ==
[2019-10-21 08:45] LABS: CREATININE,URINE 128.2 mg/dL; MICROALBUM/CREATININE RATIO,UR 28.9 ug/mg (<30.0); MICROALBUMIN,URINE 3.7 mg/dL (0-300.0)
[2019-10-21 08:46] LABS: BUN - BLOOD UREA NITROGEN 14 mg/dL (6-20); CALCIUM 9.2 mg/dL (8.5-10.3); CARBON DIOXIDE - CO2 24 mmol/L (21-32); CHLORIDE 101 mmol/L (101-111); CHOL/HDL RATIO 4.9 (<4.4); CHOLESTEROL 205 mg/dL; CREATININE 0.7 mg/dL (0.4-1.0); GFR - MDRD 90 (>89); GLUCOSE 178 mg/dL (70-100); HDL CHOLESTEROL 42 mg/dL; LDL CHOLESTEROL,CALCULATED 118 mg/dL; LDL/HDL RATIO 2.8 (<4.4); SODIUM 136 mmol/L (135-145); VLDL CHOLESTEROL 45 mg/dL
[2019-10-21 08:49] LABS: HB2 TOTAL 13.9 g/dL; HEMOGLOBIN A1C 0.85 g/dL; HEMOGLOBIN A1C % 7.7 % (4.6-6.2)
== END 2019-10-21 08:01 | disposition home or self-care (01) ==
LOC: LAB 08:00
PROVIDERS: ATTEND Physician Assistant Medical
DX: R73.9 Hyperglycemia, unspecified (principal); E78.5 Hyperlipidemia, unspecified; E04.1 Nontoxic single thyroid nodule
CPT/HCPCS: 36415; 80048; 80061; 82043; 82570; 83036; 83721; 84443

== ENCOUNTER 2019-10-27 08:00 | Outpatient (CLI) | payer BC | END 2019-10-27 23:59 | disposition home or self-care (01) | LOC: LAB.R 08:00 | PROVIDERS: ATTEND Physician Assistant Medical | DX: N39.0 Urinary tract infection, site not specified (principal) | CPT/HCPCS: 87086 ==

== ENCOUNTER 2019-12-31 16:14 | Emergency (ER) | payer BC ==
--- NOTE | 2019-12-31 16:35 | ED Physician Documentation ---
History of Present Illness - Stated complaint Stated Complaint: L LEG PX - Chief complaint Chief Complaint: Ext Problem - History obtained from History obtained from: Patient - History of Present Illness Pain level max: 5 Pain level now: 4 - Additonal information Additional information: 44-year-old female with swelling and pain to the left calf for the past 4 to 5 days, now increasing and becoming constant. Does not recall any injury. She does take estrogen. No erythema. No warmth. Worse with movement and better with rest. No chest pain. No dyspnea. Review of Systems Constitutional: denies: Fever, Chills Throat: denies: Sore throat Cardiac: denies: Chest pain / pressure GI: denies: Vomiting, Diarrhea Skin: denies: Rash Musculoskeletal: denies: Neck pain, Back pain Neurologic: denies: Headache PD PAST MEDICAL HISTORY - Past Medical History Cardiovascular: Hypertension Respiratory: None Neuro: None Endocrine/Autoimmune: None GI: None COURTESY CLERK: None : None, Kidney stones HEENT: None Psych: None Musculoskeletal: None Derm: None - Past Surgical History Past Surgical History: Yes General: Cholecystectomy Ortho: Shoulder arthroplasty /COURTESY CLERK: Hysterectomy, Other HEENT: Tonsil/Adenoidectomy - Present Medications Home Medications: Ambulatory Orders Medication Instructions Recorded Confirmed Famotidine 20 mg PO DAILY 05/27/18 11/10/18 Omeprazole 20 mg PO DAILY 05/27/18 11/10/18 lisinopriL [Lisinopril] 20 mg PO DAILY 05/27/18 11/10/18 Estradiol 0.05 mg Patch [Climara 1 each TOP 06/19/19 06/19/19 0.05 mg] - Allergies Allergies/Adverse Reactions: Allergies Allergy/AdvReac Type Severity Reaction Status Date / Time hydrocodone bitartrate * AdvReac Severe Nausea Verified 12/31/19 16:25 [From Vicodin] adhesive tape AdvReac Rash Verified 12/31/19 16:25 - Social History Does the pt smoke?: No Smoking Status: Never smoker Does the pt drink ETOH?: No Does the pt have substance abuse?: No - Immunizations Immunizations are current?: Yes - POLST Patient has POLST: No PD ED PE NORMAL - Vitals Vital signs reviewed: Yes - General General: Alert and oriented X 3, No acute distress - HEENT HEENT: Moist mucous membranes - Neck Neck: Supple, no meningeal sign - Derm Derm: Warm and dry - Extremities Extremities: Other (Swelling to the left calf, tenderness over the posterior aspect of the calf. No signs of infection. Neurovascular intact. Otherwise normal exam) - Neuro Neuro: Alert and oriented X 3 Results - Vitals Vitals: Vital Signs - 24 hr 12/31/19 12/31/19 16:22 18:43 Temperature 36.2 C L Heart Rate 96 94 Respiratory 18 16 Rate Blood Pressure 186/99 H 173/87 H O2 Saturation 99 97 Oxygen O2 Source Room air - Rads (name of study) Duplex ultrasound left lower extremity Radiology: Prelim report reviewed, EMP read contemporaneously, See rad report (No DVT) PD MEDICAL DECISION MAKING - ED course Complexity details: reviewed results, re-evaluated patient, considered differential, d/w patient ED course: Patient with left calf pain of unclear etiology. No evidence of DVT. No evidence of neck fast. No evidence of cellulitis. No evidence of compartment syndrome. Neurovascular intact. Jose bandage applied. Declines pain medication here or for home. Declines crutches. Patient counseled regarding signs and symptoms for which I believe and urgent re-evaluation would be necessary. Patient with good understanding of and agreement to plan and is comfortable going home at this time This document was made in part using voice recognition software. While efforts are made to proofread this document, sound alike and grammatical errors may occur. Departure - Departure Disposition: 01 Home, Self Care Clinical Impression: Pain of left calf Condition: Good Instructions: ED Muscle Pain Leg Cramps, ED Strain Muscle Ext Follow-Up: Elif Fournier PA-C [Primary Care Provider] - Within 1 week Comments: Drink plenty of fluids. Return if you worsen. We will try the Jose bandage to see if this helps. There is no blood clot on your ultrasound today. Discharge Date/Time: 12/31/19 18:44
--- NOTE | 2019-12-31 18:20 | Ultrasound Report ---
Reason: LLE swelling, pain Procedure Date: 12/31/2019 Accession Number: [id number] / [id number] Procedure: US - Duplex Ext Veins Left CPT Code: Final Report FULL RESULT: EXAM: LEFT LOWER EXTREMITY VENOUS ULTRASOUND EXAM DATE: 12/31/2019 05:20 PM. CLINICAL HISTORY: LLE swelling, pain. COMPARISON: None. TECHNIQUE: Real-time sonographic vascular imaging was performed by the squad boss through the lower extremity utilizing both color-flow and Doppler spectral analysis. Multiple dental sales representative static images were saved for review. FINDINGS: Common Femoral Vein (CFV): Normal. CFV-GSV Junction: Normal. Profunda Femoral Vein (PFV): Normal. Femoral Vein (FV) Prox: Normal. Femoral Vein (FV) Mid: Normal. Femoral Vein (FV) Dist: Normal. Popliteal Vein: Normal. Posterior Tibial Veins: Normal. Peroneal Veins: Normal. Contralateral Side CFV: Normal. Other: None. IMPRESSION: No evidence for deep venous thrombosis. RADIA
[2019-12-31 18:44] VITALS: BP 173/87
== END 2019-12-31 18:44 | disposition home or self-care (01) ==
LOC: ED 16:14
DX: M79.662 Pain in left lower leg (principal); I10 Essential (primary) hypertension
CPT/HCPCS: 99282

== ENCOUNTER 2020-01-05 08:00 | Outpatient (CLI) | payer BC ==
[2020-01-05 17:59] LABS: BASOPHILS # (AUTO) 0.1 10^3/uL (0.0-0.1); BASOPHILS % (AUTO) 0.7 %; EOSINOPHILS # (AUTO) 0.2 10^3/uL (0.0-0.7); EOSINOPHILS % (AUTO) 1.7 %; HGB - HEMOGLOBIN 13.4 g/dL (12.0-16.0); LYMPHOCYTES # (AUTO) 3.2 10^3/uL (1.5-3.5); LYMPHOCYTES % (AUTO) 32.6 %; MEAN CORPUSCULAR HEMOGLOBIN 29.4 pg (27.0-31.0); MEAN CORPUSCULAR HGB CONC 32.2 g/dL (32.0-36.0); MEAN CORPUSCULAR VOLUME 91.2 fL (81.0-99.0); MEAN PLATELET VOLUME 11.4 fL (7.9-10.8); MONOCYTES # (AUTO) 0.6 10^3/uL (0.0-1.0); MONOCYTES % (AUTO) 6.3 %; NEUTROPHILS # (AUTO) 5.6 10^3/uL (1.5-6.6); NEUTROPHILS % (AUTO) 57.6 %; PLT - PLATELET COUNT 282 10^3/uL (130-450); RED BLOOD COUNT 4.56 10^6/uL (4.20-5.40); RED CELL DISTRIBUTION WIDTH 13.2 % (12.0-15.0); WHITE BLOOD COUNT 9.8 x10^3/uL (4.8-10.8)
[2020-01-05 18:11] LABS: ALBUMIN 4.2 g/dL (3.2-5.5); ALBUMIN/GLOBULIN RATIO 1.4 (1.0-2.2); BILIRUBIN,TOTAL 0.7 mg/dL (0.2-1.0); CALCIUM 9.7 mg/dL (8.5-10.3); CREATININE 0.9 mg/dL (0.4-1.0); TOTAL PROTEIN 7.2 g/dL (6.7-8.2)
[2020-01-05 18:14] LABS: HB2 TOTAL 14.4 g/dL; HEMOGLOBIN A1C 1.37 g/dL; HEMOGLOBIN A1C % 10.9 % (4.6-6.2)
== END 2020-01-05 23:59 | disposition home or self-care (01) ==
LOC: LAB.WCP 08:00
PROVIDERS: ATTEND Physician Assistant Medical
DX: E11.9 Type 2 diabetes mellitus without complications (principal); N80.9 Endometriosis, unspecified
CPT/HCPCS: 36415; 80053; 83036; 85025

== ENCOUNTER 2020-03-09 16:37 | Outpatient (CLI) | payer BC ==
--- NOTE | 2020-03-09 18:09 | XRAY Report ---
PROCEDURE: Abdomen 1 View X-Ray INDICATIONS: RENAL STONE TECHNIQUE: 1 view of the abdomen were acquired. COMPARISON: None FINDINGS: Surgical changes and devices: Surgical clips are projected over the gallbladder fossa. Bowel: No pneumoperitoneum. The bowel gas pattern is normal. Soft tissues: No masses; visualized solid organ contours appear normal in size. No suspicious abdom inal calcifications. Bones: No suspicious bony abnormalities. IMPRESSION: No acute intra-abdominal findings. Reviewed by: Tash Gutierrez MD on 03/09/2020 6:08 PM PDT Approved by: Tash Gutierrez MD on 03/09/2020 6:08 PM PDT Station ID: [id number]
== END 2020-03-09 16:38 | disposition home or self-care (01) ==
LOC: DI 16:37
PROVIDERS: ATTEND Physician Assistant Medical
DX: N20.0 Calculus of kidney (principal)
CPT/HCPCS: 74018

== ENCOUNTER 2020-03-16 16:50 | Outpatient (CLI) | payer BC ==
--- NOTE | 2020-03-16 18:27 | CT Report ---
PROCEDURE: Abdomen/Pelvis WO INDICATIONS: RENAL STONE TECHNIQUE: Noncontrast 5 mm thick sections acquired from the diaphragms to the symphysis. 5 mm coronal and sagi ttal reformats were then performed. For radiation dose reduction, the following was used: automated exposure control, adjustment of mA and/or kV according to patient size. COMPARISON: Prior CT examinations 06/19/2019 and 11/10/2018. Correlation is also made with abdominal plain film 03/09/2020 FINDINGS: Image quality: Excellent. ABDOMEN: Lung bases: Lung bases are clear. Heart size is normal. Solid organs: The liver is enlarged and demonstrates fatty infiltration. Unremarkable spleen. An acc essory spleen is incidentally noted along the hilum of the primary spleen. Gallbladder has been rem girish. Pancreas is normal in contours. No adrenal nodules. Nonobstructing bilateral renal stones are seen. The largest stone on the left measures 7 mm. The larg est stone on the right measures 3 to 4 mm. Peritoneum and bowel: Unenhanced bowel loops demonstrate normal wall thickness and caliber. No free fluid or air. Nodes and vessels: No retroperitoneal or mesenteric adenopathy by size criteria. Aorta and inferior vena cava are normal in caliber. Miscellaneous: No ventral hernias. PELVIS: Genitourinary: Bladder wall thickness is normal. No normal uterus is seen. Supracervical hysterectom y is suspected. Miscellaneous: No inguinal hernias or adenopathy. Bones: No suspicious bony lesions. No vertebral body compression fractures. Age-appropriate degen erative changes are seen. IMPRESSION: Bilateral nonobstructing renal stones are seen. No ureteral stones or hydronephrosis can be seen. Incidental note is made of: Enlarged, fatty liver Cholecystectomy Accessory splenule Apparent supracervical hysterectomy Reviewed by: Jose Miguel Nassar MD on 03/16/2020 5:26 PM [facility] Approved by: Jose Migule Nassar MD on 03/16/2020 5:26 PM [facility] Station ID: [id number]
== END 2020-03-16 16:51 | disposition home or self-care (01) ==
LOC: DI 16:50
PROVIDERS: ATTEND Physician Assistant Medical
DX: N20.0 Calculus of kidney (principal)
CPT/HCPCS: 74176

== ENCOUNTER 2020-04-24 07:33 | Outpatient (CLI) | payer BC ==
[2020-04-24 08:04] LABS: ALBUMIN 4.3 g/dL (3.2-5.5); ALBUMIN/GLOBULIN RATIO 1.3 (1.0-2.2); ALKALINE PHOSPHATASE 83 IU/L (42-121); ALT ALANINE AMINOTRANSFERASE 39 IU/L (10-60); AST ASPARTATE AMINOTRANSFERASE 31 IU/L (10-42); BILIRUBIN,TOTAL 0.5 mg/dL (0.2-1.0); BUN - BLOOD UREA NITROGEN 13 mg/dL (6-20); CALCIUM 9.7 mg/dL (8.5-10.3); CARBON DIOXIDE - CO2 24 mmol/L (21-32); CHLORIDE 105 mmol/L (101-111); CHOL/HDL RATIO 4.7 (<4.4); CHOLESTEROL 212 mg/dL; CREATININE 0.9 mg/dL (0.4-1.0); GLUCOSE 133 mg/dL (70-100); HDL CHOLESTEROL 45 mg/dL; LDL CHOLESTEROL,CALCULATED 103 mg/dL; LDL/HDL RATIO 2.3 (<4.4); SODIUM 139 mmol/L (135-145); TOTAL PROTEIN 7.5 g/dL (6.7-8.2); VLDL CHOLESTEROL 64 mg/dL
[2020-04-24 09:47] LABS: HEMOGLOBIN A1c% 6.8 % (4.27-6.07)
== END 2020-04-24 07:34 | disposition home or self-care (01) ==
LOC: LAB 07:33
PROVIDERS: ATTEND Physician Assistant Medical
DX: E11.9 Type 2 diabetes mellitus without complications (principal)
CPT/HCPCS: 36415; 80053; 80061; 83036; 83721

== ENCOUNTER 2020-04-26 07:00 | Outpatient (CLI) | payer BC | END 2020-04-26 23:59 | disposition home or self-care (01) | LOC: LAB.R 07:00 | PROVIDERS: ATTEND Physician Assistant Medical | DX: R30.0 Dysuria (principal) | CPT/HCPCS: 87086 ==

== ENCOUNTER 2020-05-22 11:32 | Outpatient (CLI) | payer BC | END 2020-05-22 11:33 | disposition home or self-care (01) | LOC: LAB 11:32 | PROVIDERS: ATTEND Surgery | DX: Z03.818 Encounter for observation for suspected exposure to other biological agents ruled out (principal) | CPT/HCPCS: 36415; 86769 ==

== ENCOUNTER 2020-07-06 07:47 | Outpatient (CLI) | payer BC ==
[2020-07-06 08:11] LABS: CALCIUM 9.1 mg/dL (8.5-10.3)
== END 2020-07-06 07:48 | disposition home or self-care (01) ==
LOC: LAB 07:47
PROVIDERS: ATTEND Physician Assistant Medical
DX: E11.9 Type 2 diabetes mellitus without complications (principal)
CPT/HCPCS: 36415; 80048; 83036

== ENCOUNTER 2020-07-11 07:28 | Outpatient (CLI) | payer BC ==
--- NOTE | 2020-07-11 14:10 | CT Report ---
PROCEDURE: CERVICAL SPINE WO INDICATIONS: LT ARM NUMBNESS AND TINGLING, LT NECK PAIN TECHNIQUE: Noncontrast 3 mm thick sections acquired from the skull base to the T4 level. Sagittal and coronal r eformats were then constructed. For radiation dose reduction, the following was used: automated exp osure control, adjustment of mA and/or kV according to patient size. COMPARISON: None. FINDINGS: Image quality: Excellent. Bones: No fractures or dislocations. There is trace C5-C6 anterolisthesis. Visualized superior ribs are intact. Soft tissues: Prevertebral soft tissues are normal in thickness. No paravertebral hematomas. No ap ical pneumothoraces. C2-C3: Disc height is normal. Mild left facet hypertrophy. No central stenosis. No neural foraminal n arrowing. No neural compression. C3-C4: Slight loss of disc height. Anterior endplate osteophytosis. Mild, diffuse disc bulge. Mild le ft facet hypertrophy. Mild left uncovertebral joint hypertrophy. No central stenosis. Moderate left n eural foraminal narrowing. No neural compression. C4-C5: Loss of disc height. Anterior endplate osteophytosis. Mild, diffuse disc bulge. Moderate right and mild left facet hypertrophy. Mild left uncovertebral joint hypertrophy. No central stenosis. Mil d right and moderate left neural foraminal narrowing. No neural compression. C5-C6: Disc height is normal. Moderate, diffuse disc bulge. Moderate to severe right and mild left fa cet hypertrophy. Mild narrowing of the central canal. Mild right neural foraminal narrowing. No neura l compression. C6-C7: Loss of disc height. Anterior endplate osteophytosis. Moderate, diffuse disc bulge. Mild bilat eral facet hypertrophy. Mild narrowing of the central canal. Mild bilateral neural foraminal narrowin g. No neural compression. C7-T1: Normal. IMPRESSION: 1. Multilevel degenerative disease. 2. Multilevel facet and uncovertebral arthropathy. 3. Mild C5-C6 and C6-7 C7 central canal narrowing. 4. Moderate left C3-C4 neural foraminal narrowing. Mild right and moderate left C4-C5 neural foramina l narrowing. Mild bilateral C6-7 C7 neural foraminal narrowing. Mild right C5-C6 neural foraminal nunu rowing. 5. No neural compression. Reviewed by: Kelsey Tellez MD, PhD on 07/11/2020 2:08 PM PST Approved by: Kelsey Tellez MD, PhD on 07/11/2020 2:08 PM PST Station ID: [id number]
--- NOTE | 2020-07-11 17:23 | XRAY Report ---
PROCEDURE: Shoulder 2 View LT INDICATIONS: LT ARM NUMBNESS AND TINGLING, LT NECK PAIN TECHNIQUE: 2 views of the shoulder were acquired. COMPARISON: None. FINDINGS: Bones: No fractures or dislocations. Foreshortening of the distal clavicle and acromionVisualized wh ich could be due to prior surgery or osteolysis. Ribs appear intact. Soft tissues: No suspicious soft tissue calcifications. IMPRESSION: 1. Prior distal clavicle and acromion postsurgical change versus osteolysis. Please correlate with cl inical history. 2. No fracture. No acute osseous lesion. If there is continued clinical concern for pathology, then r epeat plain film radiographs (7-10 days) or advanced imaging (CT, MR, bone scan) should be considered for further evaluation. Reviewed by: Kelsey Tellez MD, PhD on 07/11/2020 5:22 PM PST Approved by: Kelsey Tellez MD, PhD on 07/11/2020 5:22 PM PST Station ID: [id number]
== END 2020-07-11 07:29 | disposition home or self-care (01) ==
LOC: DI 07:28
PROVIDERS: ATTEND Surgery
DX: M50.322 Other cervical disc degeneration at C5-C6 level (principal); M48.02 Spinal stenosis, cervical region; R20.2 Paresthesia of skin; M25.512 Pain in left shoulder
CPT/HCPCS: 72125

== ENCOUNTER 2020-07-24 08:51 | Outpatient (CLI) | payer BC ==
--- NOTE | 2020-07-24 11:57 | XRAY Report ---
PROCEDURE: Elbow 3 View LT INDICATIONS: L LATERAL EPICONDYLITIS TECHNIQUE: 3 views of the elbow were acquired. COMPARISON: None FINDINGS: Bones: No fractures or dislocations. No suspicious bony lesions. Soft tissues: No elbow joint effusion. No suspicious soft tissue calcifications. IMPRESSION: No fracture. No osseous lesion. If there is continued clinical concern for pathology, then repeat jeffrey in film radiographs (7-10 days) or advanced imaging (CT, MR, bone scan) should be considered for furt her evaluation. Reviewed by: Kelsey Tellez MD, PhD on 07/24/2020 11:56 AM [facility] Approved by: Kelsey Tellez MD, PhD on 07/24/2020 11:56 AM [facility] Station ID: [id number]
== END 2020-07-24 23:59 | disposition home or self-care (01) ==
LOC: DI.N 08:51
PROVIDERS: ATTEND Orthopaedic Surgery
DX: M77.12 Lateral epicondylitis, left elbow (principal)

== ENCOUNTER 2020-08-17 16:31 | Outpatient (CLI) | payer BC ==
[2020-08-17 16:48] LABS: BASOPHILS # (AUTO) 0.1 10^3/uL (0.0-0.1); BASOPHILS % (AUTO) 0.7 %; EOSINOPHILS # (AUTO) 0.1 10^3/uL (0.0-0.7); EOSINOPHILS % (AUTO) 0.9 %; HGB - HEMOGLOBIN 14.3 g/dL (12.0-16.0); LYMPHOCYTES # (AUTO) 4.5 10^3/uL (1.5-3.5); LYMPHOCYTES % (AUTO) 29.1 %; MEAN CORPUSCULAR HEMOGLOBIN 29.4 pg (27.0-31.0); MEAN CORPUSCULAR HGB CONC 32.6 g/dL (32.0-36.0); MEAN CORPUSCULAR VOLUME 90.3 fL (81.0-99.0); MEAN PLATELET VOLUME 9.5 fL (7.9-10.8); MONOCYTES # (AUTO) 1.2 10^3/uL (0.0-1.0); MONOCYTES % (AUTO) 7.5 %; NEUTROPHILS # (AUTO) 9.1 10^3/uL (1.5-6.6); NEUTROPHILS % (AUTO) 59.1 %; PLT - PLATELET COUNT 378 10^3/uL (130-450); RED BLOOD COUNT 4.86 10^6/uL (4.20-5.40); RED CELL DISTRIBUTION WIDTH 14.2 % (12.0-15.0); WHITE BLOOD COUNT 15.3 x10^3/uL (4.8-10.8)
[2020-08-17 16:52] LABS: CALCIUM 9.6 mg/dL (8.5-10.3); CREATININE 0.9 mg/dL (0.4-1.0)
== END 2020-08-17 16:32 | disposition home or self-care (01) ==
LOC: LAB 16:31
PROVIDERS: ATTEND Orthopaedic Surgery
DX: Z01.812 Encounter for preprocedural laboratory examination (principal); M77.02 Medial epicondylitis, left elbow; M77.12 Lateral epicondylitis, left elbow; E11.9 Type 2 diabetes mellitus without complications; Z20.828 Contact with and (suspected) exposure to other viral communicable diseases
CPT/HCPCS: 36415; 80048; 85025

== ENCOUNTER 2020-08-22 06:32 | Day surgery (SDC) | payer BC ==
[2020-08-22] MEDS ORDERED: LACTATED RINGERS 1,000 ML IV ONE ×2 (06:39→08:51)
[2020-08-22] MEDS ORDERED: ACETAMINOPHEN 1,000 MG/100 ML 100 ML IV ONE (06:40)
[2020-08-22] MEDS ORDERED: CELECOXIB 100 MG CAPSULE PO ONE (06:40)
[2020-08-22] MEDS ORDERED: GABAPENTIN 400 MG CAPSULE ONE (06:41)
[2020-08-22] MEDS ORDERED: ceFAZolin 2 GM/50 ML 2 GM/50 ML BAG IV ONE (06:42)
[2020-08-22] MEDS ORDERED: MIDAZOLAM 2 MG/2 ML VIAL ONE ×2 (07:04→07:58)
[2020-08-22] MEDS ORDERED: SCOPOLAMINE PATCH TOP ONE (07:24)
--- NOTE | 2020-08-22 07:36 | ANESTHESIA ---
Pre-Anesthesia VS, & Labs - Diagnosis left medial and lateral epicondylitis - Procedure medial and lateral epicondylectomy Vital Signs: Temp Pulse Resp BP Pulse Ox 36.2 C L 87 12 145/92 H 96 08/22/20 06:39 08/22/20 06:39 08/22/20 06:39 08/22/20 06:39 08/22/20 06:39 Height: 5 ft 2 in Weight (kg): 106 kg Body Mass Index: 42.7 BMI Classification: Morbidly Obese - Is Patient ?: No - Lab Results Current Lab Results: Laboratory Tests 08/22/20 07:04: POC Whole Bld Glucose 119 H Lab results reviewed: Yes Home Medications and Allergies Home Medications: Ambulatory Orders Diclofenac Sodium [Voltaren] 2 gm TP BID PRN 08/20/20 Duloxetine HCl [Cymbalta] 60 mg PO DAILY 08/20/20 Empagliflozin [Jardiance] 25 mg PO DAILY 08/20/20 Estradiol [Estrace] 0.5 mg PO DAILY 08/20/20 Exenatide Microspheres [Bydureon Bcise] 2 mg SQ OAW 08/20/20 Glycopyrrolate 1 mg PO TID 08/20/20 Metformin HCl [Fortamet] 500 mg PO DAILY 08/20/20 Ondansetron Odt [Zofran Odt] 4 mg TL Q6H PRN 08/20/20 Tamsulosin HCl [Flomax] 0.4 mg PO BID 08/20/20 Valacyclovir HCl [Valtrex] 1,000 mg PO BID PRN 08/20/20 traMADol [Ultram] 50 mg PO Q4-6H 08/20/20 Active Medications Scopolamine HBr (Scopolamine Patch) 1 patch TOP Q3D DOUG Last Admin: 08/22/20 07:21 Dose: 1 patch Documented by: Omeprazole 20 mg PO DAILY 05/27/18 lisinopriL [Lisinopril] 40 mg PO DAILY 05/27/18 Diclofenac Sodium [Voltaren] 2 gm TP BID PRN 08/20/20 Duloxetine HCl [Cymbalta] 60 mg PO DAILY 08/20/20 Empagliflozin [Jardiance] 25 mg PO DAILY 08/20/20 Estradiol [Estrace] 0.5 mg PO DAILY 08/20/20 Exenatide Microspheres [Bydureon Bcise] 2 mg SQ OAW 08/20/20 Glycopyrrolate 1 mg PO TID 08/20/20 Metformin HCl [Fortamet] 500 mg PO DAILY 08/20/20 Ondansetron Odt [Zofran Odt] 4 mg TL Q6H PRN 08/20/20 Tamsulosin HCl [Flomax] 0.4 mg PO BID 08/20/20 Valacyclovir HCl [Valtrex] 1,000 mg PO BID PRN 08/20/20 traMADol [Ultram] 50 mg PO Q4-6H 08/20/20 Allergies/Adverse Reactions: Allergies Allergy/AdvReac Type Severity Reaction Status Date / Time latex Allergy Rash Verified 08/17/20 15:56 hydrocodone bitartrate * AdvReac Severe Nausea Verified 12/31/19 16:25 [From Vicodin] adhesive tape AdvReac Rash Verified 12/31/19 16:25 Anes History & Medical History - Anesthetic History Anesthesia Complications: reports: Post-Operative Nausea/Vomiting Family history of Anesthesia Complications: Denies Family history of Malignant Hyperthermia: Denies - Medical History Cardiovascular: reports: Hypertension Pulmonary: reports: Sleep apnea, CPAP use Gastrointestinal: reports: GERD, Other Urinary: reports: Kidney stones Neuro: reports: None Musculoskeletal: reports: None Endocrine/Autoimmune: reports: Type 2 diabetes Blood Disorders: reports: None Skin: reports: None Smoking Status: Never smoker - Surgical History General: Cholecystectomy Eyes Ears Nose Throat (EENT): Tonsil/Adenoidectomy Urologic: Ureterolithotomy (stones) Gynecologic: Hysterectomy, Other Orthopedic: Rotator cuff repair Exam General: Alert, Oriented x3, Cooperative, No acute distress Dental: WNL Mouth Openin Fingerbreadth Neck Mobility: Normal Mallampati classification: II Respiratory: Lungs clear, Normal breath sounds, No respiratory distress, No accessory muscle use Cardiovascular: Regular rate, Normal S1, Normal S2, No murmurs Plan Anesthesia Type: Supraclavicular Block Consent for Procedure(s) Verified and Reviewed: Yes Code Status: Attempt Resuscitation ASA classification: 3-Severe systemic disease Is this case an emergency?: No
[2020-08-22] MEDS ORDERED: METOCLOPRAMIDE 10 MG/2 ML VIAL IVP PRN ×2 (07:37→07:38)
[2020-08-22] MEDS ORDERED: fentaNYL 100 MCG/2 ML VIAL IVP PRN ×2 (07:37→07:38)
[2020-08-22] MEDS ORDERED: ATROPINE ABBOJECT 1 MG/10 ML SYRINGE IVP PRN ×2 (07:37→07:38)
[2020-08-22] MEDS ORDERED: ONDANSETRON 4 MG/2 ML VIAL IVP PRN ×2 (07:37→07:38)
[2020-08-22] MEDS ORDERED: ePHEDrine 50 MG/ML VIAL IVP PRN ×2 (07:37→07:38)
[2020-08-22] MEDS ORDERED: MORPHINE 2 MG/ML CARPUJECT IVP PRN ×2 (07:37→07:38)
[2020-08-22] MEDS ORDERED: HYDROmorphone 0.5 MG/0.5 ML SYRINGE IVP PRN ×2 (07:37→07:38)
[2020-08-22] MEDS ORDERED: NALOXONE 0.4 MG/ML VIAL IVP PRN ×2 (07:37→07:38)
[2020-08-22] MEDS ORDERED: LACTATED RINGERS 1,000 ML IV SCH ×2 (08:00)
[2020-08-22] MEDS ORDERED: SCOPOLAMINE PATCH TOP SCH (08:00)
[2020-08-22] MEDS ORDERED: BUPIVACAINE 0.5%-EPI 1:200000 PF 30 ML VIAL ONE (08:01)
[2020-08-22] MEDS ORDERED: BUPIVACAINE 0.5%-EPI 1:200000 PF 30 ML VIAL SUBQ ONE (08:04)
[2020-08-22] MEDS ORDERED: KETOROLAC 15 MG/ML VIAL IVP STA (08:52)
[2020-08-22] MEDS ORDERED: oxyCODONE 5 MG TABLET PO PRN (08:52)
--- NOTE | 2020-08-22 08:54 | OPERATIVE REPORT ---
Operative Report - General Procedure Date: 08/22/20 - Procedure Note Primary Surgeon: Nile Anesthesia Technique: MAC, Regional block - Other Other Information/Narrative: Surgeon: Nile Channel Rougher: Mingo OSPINA Preoperative diagnosis: 1. Left elbow lateral epicondylitis 2. Left elbow medial epicondylitis Postop diagnosis: same Procedure: 1. Left elbow lateral epicondylectomy and extensor tendon repair 2. Left elbow medial epicondylectomy and flexor tendon repair Preamble: This [id number] patient has been struggling with medial and lateral epicondylitis of both elbows for several months, and has had multiple prior corticosteroid injections. Nonsurgical management has unfortunately been unsuccessful in providing sustained relief. After discussion of operative and nonoperative management, patient elected to proceed with medial and lateral epicondylectomies and tendon repairs. Operative note: The patient was brought to the operating room and regional block was administered by anesthesia. Placed in supine position with all bony prominences well-padded and intravenous sedation was administered. Patient received intravenous antibiotics preoperatively for prophylaxis against infection. Arm was then prepped and draped in usual sterile fashion. Timeout was completed, confirming patient, procedure and side. Bony landmarks were then identified and marked. Incision then made over the lateral elbow extending from the lateral epicondyle to the radial head. Blunt dissection carried out down to the extensor origin. ECRL was then divided to expose ECRB. Dull rhodes fibrous tissue was visualized and was debrided with a rongeur. A drill hole was then made and a 1.4 mm juggerknot anchor was then fully seated. Attached suture was then used to repair the common extensor origin. Wound was irrigated normal saline. I then turned my attention to the medial elbow. Oblique incision made over the medial epicondyle. Blunt dissection down to the medial epicondyle. Common flexor was identified and tendon was opened with a scalpel. Again dull grayish fibrous tissue was visualized and completely debrided with a rongeur. Another 1.4 mm juggerknot anchor was then placed into the medial epicondyle and attached suture used to repair the tendon. Wound irrigated with normal saline. Medial and lateral incisions and closed in layers with 2-O [place]loc, 3-0 stratafix and Dermabond. Sterile dressings then applied, Followed by a wrist splint and sling. Patient was then transferred to regular hospital and taken to recovery room in stable condition with no intraoperative complications. Estimated blood loss less than 5 cc. Postoperative plan: Discharge home when able. Sling until regional block has worn off. Wrist splint full-time for 6 weeks with the exception of occupational therapy and skin care. No resisted wrist flexion or extension for 6 weeks. Elbow range of motion as tolerated. Ice and elevate the elbow.
--- NOTE | 2020-08-22 09:00 | ANESTHESIA POST OP EVALUATION ---
Anesthesia Post Eval - Post Anesthesia Eval Vitals: Last Vital Signs Temp 36 C L 08/22/20 08:48 Pulse 87 08/22/20 08:48 Resp 15 08/22/20 08:48 BP 121/60 08/22/20 08:48 Pulse Ox 99 08/22/20 08:48 CV Function Including HR & BP: positive: Stable Pain Control: positive: Satisfactory Nausea & Vomiting: positive: Negative Mental Status: positive: Baseline Respiratory Status: Airway Patent Hydration Status: Satisfactory Anesthesia Complications: positive: None
[2020-08-22 09:19] VITALS: BP 125/69
== END 2020-08-22 06:33 | disposition home or self-care (01) ==
LOC: SDS 06:32
PROVIDERS: ATTEND Orthopaedic Surgery
DX: M77.02 Medial epicondylitis, left elbow (principal); M77.12 Lateral epicondylitis, left elbow; E11.9 Type 2 diabetes mellitus without complications; I10 Essential (primary) hypertension; G47.30 Sleep apnea, unspecified; E66.01 Morbid (severe) obesity due to excess calories; Z68.41 Body mass index [BMI] 40.0-44.9, adult; K21.9 Gastro-esophageal reflux disease without esophagitis; K58.0 Irritable bowel syndrome with diarrhea; Z79.4 Long term (current) use of insulin; Z79.899 Other long term (current) drug therapy

== ENCOUNTER 2020-09-21 08:16 | Outpatient (CLI) | payer BC ==
--- NOTE | 2020-09-21 08:48 | SLEEP CARE CONSULTATION ---
Information from patient questionnaire entered by Mckenna Sr. I have reviewed and concur with the information entered by Mckenna Sr. This document represents the service I personally performed and the decisions made by , Marisela Joseph ARNP. History of Present Illness Service Date and Time: 09/21/2020 0816 Previous diagnosis: Mild, Obstructive Sleep Apnea-Hypopnea Syndrome AHI: 7.0 (in 2018) Reason for follow up: annual (last seen 05/2019) Equipment type: CPAP Equipment obtained from: [facility] (getting supplies as needed) Mask style: Full face Mask brand: Respironics Backup mask available: Yes (old mask) Last cushion change: 3 weeks ago Prior sleep studies: Yes Year and Where: 2017 - [facility] Type of Sleep Study: Polysomnography HPI additional information: SHARDA BRANHAM was diagnosed to have mild, AHI 7.0, obstructive sleep apnea- hypopnea syndrome and returned today for CPAP therapy annual follow-up. CPAP Compliance Data - Data Reviewed with Patient Average duration of nightly device use: 8 hr 26 min Compliance rate %: 98.9 (180 days) Current pressure setting (cmH2O): 8-12 Humidity settin Heated hose settin Average residual AHI: 0.7 Average large leak: 2 sec Subjective Missed days of use due to: reports: other (power outage) Patient concerns: reports: mask discomfort (just when leaking, fine otherwise), mask leak noise, condensation in mask/hose, dry mouth, nose, throat, other (snore while using device). denies: aerophagia, nasal congestion, epistaxis Observed to snore while using device: Yes (just recently with the dry mouth) Current pressure setting perceived as: too low On therapy, patient: reports: sleeping better, awakening more refreshed, being more awake and alert during the day, more rested overall. denies: drowsiness while driving Initial [place] Sleepiness Scale score: 13 (in 2012) Current [place] Sleepiness Scale score: 12 Allergies and Home Medications Drug allergies reviewed: Yes (see list in chart) Home medication list reviewed: Yes (no changes) Review of Systems Review of systems same as previous: No (cubital tunnel surgery Aug 22, in brace) Physical Exam Heart Rate: 93 O2 Saturation: 97 Height: 5 ft 2 in Weight: 238 lb Body Mass Index: 43.5 BMI Classification: Morbidly Obese Impression and Plan 1. Obstructive Sleep Apnea-Hypopnea Syndrome, mild, with good treatment compliance and good apnea control. On CPAP therapy, the patient has better sleep quality and is more rested overall. She has had some difficulty with condensation in the mask in the mornings. She is also having a dry mouth in the morning. She has noticed some snoring when using her mask but it is not as bad as it can be when not using the CPAP. She has recently developed a cough in the morning and is not sure how this may be connected. She states she has been getting more tired recently, wanting to nap again and having to drink a Red Bull to stay awake in the late afternoon. To resolve snore, the CPAP pressure will be changed to 10-13 cmH20. Patient advised to contact this office if pressure change uncomfortable or if pressure change does not resolve snore. I discussed with her that oral dryness can be reduced by adjusting humidity setting higher or heated hose lower or by adjusting both settings. She can increase the heated hose setting up 1 to see if this resolves the condensation and if she continues with oral dryness she can increase her humidity setting. She was advised to change her settings to manual if they are not so she may adjust them to find a good balance of humidity without condensation. She voiced understanding and agreement with plan. Patient's apnea severity and rationale for treatment to reduce apnea, improve sleep quality and reduce cardiovascular and cerebrovascular events was reviewed. I also reviewed the benefit of consistent device use of CPAP for hypertension and gastric reflux. * Change autoCPAP pressure to 10-13 cmH2O * Notify me if snoring with mask or feeling that the pressure is too much or too little * Attempt to lose weight * Call this office if any problems using CPAP * Return for follow up in 1-2 months, or sooner if concerns arise Counseling Topics: Spare mask, Weight loss health impact Visit Type: In Office Time Spent with Patient (minutes): 24 Provider Statement: I spent 100% of the Face to Face Visit with the patient with greater than 50% spent counseling the patient and coordination of care.
== END 2020-09-21 08:17 | disposition home or self-care (01) ==
LOC: SC 08:16
PROVIDERS: ATTEND Nurse Practitioner Family
DX: G47.33 Obstructive sleep apnea (adult) (pediatric) (principal); R06.83 Snoring; E66.01 Morbid (severe) obesity due to excess calories; Z68.41 Body mass index [BMI] 40.0-44.9, adult; R53.83 Other fatigue
CPT/HCPCS: 99212; 99213

== ENCOUNTER 2020-11-08 07:00 | Outpatient (CLI) | payer BC ==
--- NOTE | 2020-11-08 11:00 | XRAY Report ---
PROCEDURE: Elbow 3 View RT INDICATIONS: RT THUMB AND ELBOW PAIN TECHNIQUE: 3 views of the elbow were acquired. COMPARISON: No prior right elbow plain films FINDINGS: Bones: No fractures or dislocations. No suspicious bony lesions. Soft tissues: No elbow joint effusion. No suspicious soft tissue calcifications. IMPRESSION: No trauma found, no joint effusion identified. Reviewed by: Allan Messina MD on 11/08/2020 9:58 AM [facility] Approved by: Allan Messina MD on 11/08/2020 9:58 AM [facility] Station ID: [id number]
--- NOTE | 2020-11-08 12:19 | XRAY Report ---
PROCEDURE: Finger(s) RT INDICATIONS: RT THUMB AND ELBOW PAIN TECHNIQUE: AP hand, 3 views of the first finger(s) acquired. COMPARISON: None FINDINGS: Bones: No fractures or dislocations. No suspicious bony lesions. Soft tissues: No suspicious soft tissue calcifications. IMPRESSION: No trauma found, minimal degenerative osteoarthritic change. No swelling seen. Reviewed by: Allan Messina MD on 11/08/2020 11:18 AM [facility] Approved by: Allan Messina MD on 11/08/2020 11:18 AM [facility] Station ID: [id number]
== END 2020-11-08 23:59 | disposition home or self-care (01) ==
LOC: DI.N 07:00
PROVIDERS: ATTEND Physician Assistant
DX: M25.521 Pain in right elbow (principal); M79.644 Pain in right finger(s); M19.041 Primary osteoarthritis, right hand

== ENCOUNTER 2021-01-01 07:50 | Outpatient (CLI) | payer BC ==
--- NOTE | 2021-01-02 12:16 | Mammography Report ---
BILATERAL DIGITAL SCREENING MAMMOGRAM 3D/2D: 01/01/2021 CLINICAL: Routine screening. Comparison is made to exams dated: 01/07/2019 mammogram and 12/05/2015 mammogram - [facility]. There are scattered fibroglandular elements in both breasts. There is a new 0.6 cm oval equal density asymmetry in the right breast at 1 o'clock middle depth. No other significant masses, calcifications, or other findings are seen in either breast. IMPRESSION: INCOMPLETE: NEEDS ADDITIONAL IMAGING EVALUATION The new 0.6 cm oval equal density asymmetry in the right breast is indeterminate. Additional views w ith possible ultrasound are recommended. This exam was interpreted at Station ID: [id number]. NOTE: For mammograms, a report in lay terms will be sent to the patient. Approximately 15% of breast malignancies will not be visualized mammographically. In the management of a palpable breast mass, a negative mammogram must not discourage biopsy of a clinically suspicious lesion. Electronically Signed By: Eric Jeffers M.D. [email or web address]:01/01/2021 08:40:35 ACR BI-RADS Category 0: Incomplete 3340F PARENCHYMAL PATTERN: (A) - The breast(s) demonstrate(s) scattered fibroglandular densities. BI-RADS CATEGORY: (0) - 0 Mammo and [place] [id number] Immediate follow-up LATERALITY: (R)
== END 2021-01-01 07:51 | disposition home or self-care (01) ==
LOC: DI 07:50
DX: Z12.31 Encounter for screening mammogram for malignant neoplasm of breast (principal); N64.89 Other specified disorders of breast

== ENCOUNTER 2021-04-04 08:00 | Outpatient (CLI) | payer BC ==
[2021-04-04 12:53] LABS: THYROID STIMULATING HORMONE 2.22 uIU/mL (0.34-5.60)
[2021-04-04 13:01] LABS: ESTIMATED AVERAGE GLUCOSE 143 mg/dL (70-100); HEMOGLOBIN A1c% 6.6 % (4.27-6.07)
[2021-04-04 13:41] LABS: ALBUMIN 4.5 g/dL (3.2-5.5); ALBUMIN/GLOBULIN RATIO 1.3 (1.0-2.2); ALKALINE PHOSPHATASE 91 IU/L (42-121); ALT ALANINE AMINOTRANSFERASE 56 IU/L (10-60); AST ASPARTATE AMINOTRANSFERASE 64 IU/L (10-42); BILIRUBIN,TOTAL 0.7 mg/dL (0.2-1.0); BUN - BLOOD UREA NITROGEN 15 mg/dL (6-20); CALCIUM 10.1 mg/dL (8.5-10.3); CARBON DIOXIDE - CO2 23 mmol/L (21-32); CHLORIDE 102 mmol/L (101-111); CHOL/HDL RATIO 5.2 (<4.4); CHOLESTEROL 223 mg/dL; CREATININE 0.8 mg/dL (0.4-1.0); GFR - MDRD 77 (>89); GLUCOSE 127 mg/dL (70-100); HDL CHOLESTEROL 43 mg/dL; LDL CHOLESTEROL,CALCULATED 107 mg/dL; LDL/HDL RATIO 2.5 (<4.4); POTASSIUM 3.9 mmol/L (3.5-5.0); SODIUM 140 mmol/L (135-145); TRIGLYCERIDES 367 mg/dL; VLDL CHOLESTEROL 73 mg/dL
== END 2021-04-04 23:59 | disposition home or self-care (01) ==
LOC: LAB.WCP 08:00
PROVIDERS: ATTEND Physician Assistant Medical
DX: E04.1 Nontoxic single thyroid nodule (principal); E11.9 Type 2 diabetes mellitus without complications
CPT/HCPCS: 36415; 80053; 80061; 83036; 83721; 84443

== ENCOUNTER 2021-06-20 08:00 | Outpatient (CLI) | payer OTHER, BC | END 2021-06-20 23:59 | disposition home or self-care (01) | LOC: LAB.WCP 08:00 | PROVIDERS: ATTEND Physician Assistant Medical | DX: N39.0 Urinary tract infection, site not specified (principal) | CPT/HCPCS: 87086 ==

== ENCOUNTER 2021-10-12 09:32 | Outpatient (CLI) | payer OTHER, BC ==
[2021-10-12 14:29] LABS: ALBUMIN 4.2 g/dL (3.2-5.5); ALBUMIN/GLOBULIN RATIO 1.4 (1.0-2.2); ALKALINE PHOSPHATASE 105 IU/L (42-121); ALT ALANINE AMINOTRANSFERASE 46 IU/L (10-60); AST ASPARTATE AMINOTRANSFERASE 49 IU/L (10-42); BILIRUBIN,TOTAL 0.6 mg/dL (0.2-1.0); BUN - BLOOD UREA NITROGEN 15 mg/dL (6-20); CALCIUM 9.1 mg/dL (8.5-10.3); CARBON DIOXIDE - CO2 24 mmol/L (21-32); CHLORIDE 100 mmol/L (101-111); CHOL/HDL RATIO 4.9 (<4.4); CHOLESTEROL 215 mg/dL; CREATININE 0.8 mg/dL (0.4-1.0); GFR - MDRD 77 (>89); GLUCOSE 134 mg/dL (70-100); HDL CHOLESTEROL 44 mg/dL; POTASSIUM 3.8 mmol/L (3.5-5.0); SODIUM 137 mmol/L (135-145); TOTAL PROTEIN 7.3 g/dL (6.7-8.2); TRIGLYCERIDES 401 mg/dL
[2021-10-12 14:30] LABS: THYROID STIMULATING HORMONE 1.44 uIU/mL (0.34-5.60)
[2021-10-12 14:32] LABS: CREATININE,URINE 193.8 mg/dL; MICROALBUM/CREATININE RATIO,UR 74.3 ug/mg (<30.0); MICROALBUMIN,URINE 14.4 mg/dL (0-300.0)
[2021-10-12 14:51] LABS: LDL CHOLESTEROL,DIRECT 127 mg/dL; LDLD/HDL RATIO 2.9 (<4.4)
[2021-10-12 21:00] LABS: ESTIMATED AVERAGE GLUCOSE 163 mg/dL (70-100); HEMOGLOBIN A1c% 7.3 % (4.27-6.07)
== END 2021-10-12 09:33 | disposition home or self-care (01) ==
LOC: LAB.N 09:32
PROVIDERS: ATTEND Physician Assistant Medical
DX: E11.9 Type 2 diabetes mellitus without complications (principal); M79.676 Pain in unspecified toe(s); E04.1 Nontoxic single thyroid nodule
CPT/HCPCS: 36415; 80053; 80061; 82043; 82570; 82607; 83036; 83721; 84443

== ENCOUNTER 2021-11-26 15:51 | Outpatient (CLI) | payer OTHER, BC ==
[2021-11-26 16:33] VITALS: BP 146/84
--- NOTE | 2021-11-26 16:33 | SLEEP CARE CONSULTATION ---
Information from patient questionnaire entered by Karol Abrams MA. I have reviewed and concur with the information entered by Karlo Abrams MA. This document represents the service I personally performed and the decisions made by , Marisela Joseph ARNP. History of Present Illness Service Date and Time: 11/26/2021 1551 Previous diagnosis: Mild, Obstructive Sleep Apnea-Hypopnea Syndrome AHI: 7.0 Reason for follow up: annual (LAST SEEN 08/2020, [place], ) Equipment type: CPAP Equipment obtained from: Other ([facility]) Mask style: Full face Backup mask available: Yes (old mask) Last cushion change: 2 weeks ago Prior sleep studies: Yes Year and Where: 2017 - [facility] Type of Sleep Study: Polysomnography HPI additional information: SHARDA BRANHAM was diagnosed to have mild, AHI 7.0, obstructive sleep apnea- hypopnea syndrome and returned today for CPAP therapy annual follow-up. Sleep Study - Results Type of Sleep Study: Polysomnography Prior sleep studies: Yes Year and Where: 2017 - [facility] CPAP Compliance Data - Data Reviewed with Patient Average duration of nightly device use: 8 HOURS 25 MINUTES Compliance rate %: 99.4 Current pressure setting (cmH2O): 10-13 Humidity settin Heated hose settin Average residual AHI: 0.4 Average large leak: 30 SECONDS Subjective Missed days of use due to: reports: other (stuck in [place], unable to use it) Patient concerns: reports: mask leak noise, other (increased coughing in last 6 weeks at night when using CPAP). denies: aerophagia, mask discomfort, air blowing in eyes, condensation in mask/hose, nasal congestion, dry mouth, nose, throat, epistaxis Observed to snore while using device: No Current pressure setting perceived as: comfortable On therapy, patient: reports: sleeping better, awakening more refreshed, being more awake and alert during the day, more rested overall. denies: drowsiness while driving Initial [place] Sleepiness Scale score: 13 Current [place] Sleepiness Scale score: 6 (10/2021) Allergies and Home Medications Home medication list reviewed: Yes (no changes) Allergy and home medication list: Allergies latex Allergy (Verified 08/17/20 15:56) Rash hydrocodone bitartrate * [From Vicodin] Adverse Reaction (Severe, Verified 12/31/19 16:25) Nausea adhesive tape Adverse Reaction (Verified 12/31/19 16:25) Rash Review of Systems Review of systems same as previous: Yes (KNEE SURGERY for torn menicus Sep 16, 2021) Physical Exam Vital signs obtained and entered by: Marifer ABRAMS CMA AAOH Blood Pressure: 146/84 (PULSE 82, LEFT, RESP 18) Heart Rate: 83 O2 Saturation: 98 (PAPER) Height: 5 ft 2 in Weight: 228 lb Body Mass Index: 41.7 BMI Classification: Morbidly Obese Impression and Plan 1. Obstructive Sleep Apnea-Hypopnea Syndrome, mild, with good treatment compliance and excellent apnea control. On CPAP therapy, the patient has better sleep quality and is more rested overall. I informed the patient that [employer] has a recall on several devices like the patients machine. Patient was encouraged to register their device online with [employer] for the recall to see if their device is affected. If their device is affected they should start a claim. Patient has noted a cough at night in the last 6 weeks when using her CPAP. If patient is not able to sleep due to waking up choking, gasping for air or other respiratory distress that they may decide to continue using it until it is either replaced or repaired. Patient has new insurance and would like to order a new device. She states she cannot sleep without her CPAP. Patient voiced understanding and agreement with plan. Patient's apnea severity and rationale for treatment to reduce apnea, improve sleep quality and reduce cardiovascular and cerebrovascular events was reviewed. I also reviewed the benefit of consistent device use of CPAP for hypertension and gastric reflux. 2. Obesity, unspecified. Currently patients BMI is 41.7. Obesity increases the risk of apnea, CPAP pressure requirements and overall health risks especially cardiovascular and diabetes. Thus patient is advised to lose weight. Weight loss can be done with reducing portion size, reducing refined foods and balancing content with vegetables, fruit and whole grain foods. In addition, patient encouraged to get regular exercise. The patient's CPAP pressure Symptoms to report for additional pressure adjustment discussed. * Continue auto CPAP pressure at 10-13 cmH2O * Update device * Update supplies as needed * Notify me if snoring with mask or feeling that the pressure is too much or too little * Attempt to lose weight * Call this office if any problems using CPAP * Return for follow up one month after obtaining new device, or sooner if concerns arise Counseling Topics: Weight loss health impact Visit Type: In Office Time Spent with Patient (minutes): 24 Provider Statement: I spent 100% of the Face to Face Visit with the patient with greater than 50% spent counseling the patient and coordination of care.
== END 2021-11-26 15:52 | disposition home or self-care (01) ==
LOC: SC 15:51
PROVIDERS: ATTEND Nurse Practitioner Family
DX: G47.33 Obstructive sleep apnea (adult) (pediatric) (principal); E66.01 Morbid (severe) obesity due to excess calories; Z68.41 Body mass index [BMI] 40.0-44.9, adult
CPT/HCPCS: 99212; 99213

== ENCOUNTER 2022-01-18 09:52 | Outpatient (CLI) | payer OTHER, BC ==
[2022-01-18 19:47] LABS: BASOPHILS # (AUTO) 0.1 10^3/uL (0.0-0.1); BASOPHILS % (AUTO) 0.6 %; EOSINOPHILS # (AUTO) 0.2 10^3/uL (0.0-0.7); EOSINOPHILS % (AUTO) 2.7 %; HCT - HEMATOCRIT 45.4 % (37.0-47.0); HGB - HEMOGLOBIN 14.4 g/dL (12.0-16.0); LYMPHOCYTES # (AUTO) 2.3 10^3/uL (1.5-3.5); LYMPHOCYTES % (AUTO) 29.5 %; MEAN CORPUSCULAR HEMOGLOBIN 28.2 pg (27.0-31.0); MEAN CORPUSCULAR HGB CONC 31.7 g/dL (32.0-36.0); MEAN PLATELET VOLUME 10.6 fL (7.9-10.8); MONOCYTES # (AUTO) 0.5 10^3/uL (0.0-1.0); MONOCYTES % (AUTO) 5.9 %; NEUTROPHILS # (AUTO) 4.7 10^3/uL (1.5-6.6); NEUTROPHILS % (AUTO) 59.8 %; PLT - PLATELET COUNT 302 10^3/uL (130-450); WHITE BLOOD COUNT 7.9 x10^3/uL (4.8-10.8)
[2022-01-18 20:04] LABS: ALBUMIN/GLOBULIN RATIO 1.1 (1.0-2.2); ALKALINE PHOSPHATASE 107 IU/L (42-121); ALT ALANINE AMINOTRANSFERASE 74 IU/L (10-60); AST ASPARTATE AMINOTRANSFERASE 100 IU/L (10-42); BILIRUBIN,TOTAL 0.5 mg/dL (0.2-1.0); BUN - BLOOD UREA NITROGEN 12 mg/dL (6-20); CALCIUM 9.5 mg/dL (8.5-10.3); CARBON DIOXIDE - CO2 25 mmol/L (21-32); CHLORIDE 102 mmol/L (101-111); CHOLESTEROL 225 mg/dL; CREATININE 0.6 mg/dL (0.4-1.0); GFR - MDRD 106 (>89); GLUCOSE 158 mg/dL (70-100); HDL CHOLESTEROL 45 mg/dL; LDL CHOLESTEROL,CALCULATED 129 mg/dL; LDL/HDL RATIO 2.9 (<4.4); POTASSIUM 4.2 mmol/L (3.5-5.0); SODIUM 137 mmol/L (135-145); TOTAL PROTEIN 7.5 g/dL (6.7-8.2); TRIGLYCERIDES 256 mg/dL; VLDL CHOLESTEROL 51 mg/dL
[2022-01-19 07:31] LABS: ESTIMATED AVERAGE GLUCOSE 192 mg/dL (70-100); HEMOGLOBIN A1c% 8.3 % (4.27-6.07)
== END 2022-01-18 09:53 | disposition home or self-care (01) ==
LOC: LAB.N 09:52
PROVIDERS: ATTEND Physician Assistant
DX: E11.9 Type 2 diabetes mellitus without complications (principal); E78.1 Pure hyperglyceridemia
CPT/HCPCS: 36415; 80053; 80061; 83036; 83721; 85025

== ENCOUNTER 2022-08-03 07:59 | Outpatient (CLI) | payer OTHER | END 2022-08-03 08:00 | disposition home or self-care (01) | LOC: LAB 07:59 | PROVIDERS: ATTEND Family Medicine | DX: I10 Essential (primary) hypertension (principal); E11.9 Type 2 diabetes mellitus without complications; E78.1 Pure hyperglyceridemia; K76.0 Fatty (change of) liver, not elsewhere classified; E78.2 Mixed hyperlipidemia; R53.83 Other fatigue; R41.89 Other symptoms and signs involving cognitive functions and awareness; E56.9 Vitamin deficiency, unspecified; K21.9 Gastro-esophageal reflux disease without esophagitis ==

== ENCOUNTER 2022-08-03 08:01 | Outpatient (CLI) | payer OTHER ==
[2022-08-03 08:41] LABS: ALBUMIN 4.3 g/dL (3.2-5.5); ALBUMIN/GLOBULIN RATIO 1.3 (1.0-2.2); ALKALINE PHOSPHATASE 102 IU/L (42-121); ALT ALANINE AMINOTRANSFERASE 29 IU/L (10-60); AST ASPARTATE AMINOTRANSFERASE 22 IU/L (10-42); BILIRUBIN,TOTAL 0.6 mg/dL (0.2-1.0); BUN - BLOOD UREA NITROGEN 15 mg/dL (6-20); CALCIUM 9.6 mg/dL (8.5-10.3); CARBON DIOXIDE - CO2 25 mmol/L (21-32); CHLORIDE 103 mmol/L (101-111); CHOL/HDL RATIO 5.5 (<4.4); CHOLESTEROL 242 mg/dL; CREATININE 0.8 mg/dL (0.4-1.0); GFR - MDRD 76 (>89); GLUCOSE 116 mg/dL (70-100); HDL CHOLESTEROL 44 mg/dL; LDL CHOLESTEROL,CALCULATED 161 mg/dL; LDL/HDL RATIO 3.7 (<4.4); POTASSIUM 4.1 mmol/L (3.5-5.0); SODIUM 138 mmol/L (135-145); TOTAL PROTEIN 7.6 g/dL (6.7-8.2); TRIGLYCERIDES 186 mg/dL; VLDL CHOLESTEROL 37 mg/dL
[2022-08-03 08:50] LABS: THYROID STIMULATING HORMONE 1.26 uIU/mL (0.34-5.60)
[2022-08-03 09:01] LABS: FOLATE 7.08 ng/mL (5.90 - >24.8)
[2022-08-03 15:00] LABS: ESTIMATED AVERAGE GLUCOSE 123 mg/dL (70-100); HEMOGLOBIN A1c% 5.9 % (4.27-6.07)
[2022-08-04 12:08] LABS: ESTRADIOL 29.9 pg/mL (.)
[2022-08-04 13:10] LABS: VITAMIN D 25-HYDROXY 9.8 ng/mL (30.0-100.0)
== END 2022-08-03 08:02 | disposition home or self-care (01) ==
LOC: LAB 08:01
PROVIDERS: ATTEND Orthopaedic Surgery
DX: Z03.818 Encounter for observation for suspected exposure to other biological agents ruled out (principal); M23.303 Other meniscus derangements, unspecified medial meniscus, right knee; E11.9 Type 2 diabetes mellitus without complications; E78.1 Pure hyperglyceridemia; I10 Essential (primary) hypertension; K76.0 Fatty (change of) liver, not elsewhere classified; E78.2 Mixed hyperlipidemia; R53.83 Other fatigue; R41.89 Other symptoms and signs involving cognitive functions and awareness; E56.9 Vitamin deficiency, unspecified; Z20.822 Contact with and (suspected) exposure to COVID-19
CPT/HCPCS: 36415; 80053; 80061; 82306; 82607; 82670; 82746; 83036; 83721; 84443

== ENCOUNTER 2022-10-03 14:21 | Outpatient (CLI) | payer OTHER ==
[2022-10-03 15:03] VITALS: BP 128/64
--- NOTE | 2022-10-03 15:03 | SLEEP CARE CONSULTATION ---
Information from patient questionnaire entered by Leonela Medina. I have reviewed and concur with the information entered by Leonela Medina. This document represents the service I personally performed and the decisions made by me, Marisela Joseph ARNP. History of Present Illness Service Date and Time: 10/03/2022 142 Previous diagnosis: Mild, Obstructive Sleep Apnea-Hypopnea Syndrome AHI: 7.0 Reason for follow up: first compliance after device update Equipment type: CPAP (JENN) Equipment obtained from: Other ([facility]; getting supplies) Mask style: Full face Backup mask available: Yes (old mask) Last cushion change: 3 weeks ago Prior sleep studies: Yes Year and Where: 2017 - [facility] Type of Sleep Study: Polysomnography HPI additional information: SHARDA BRANHAM was diagnosed to have mild, AHI 7.0, obstructive sleep apnea- hypopnea syndrome and returned today for CPAP therapy first compliance after updating device follow-up. Sleep Study - Results Type of Sleep Study: Polysomnography Prior sleep studies: Yes Year and Where: 2017 - [facility] CPAP Compliance Data - Data Reviewed with Patient Average duration of nightly device use: 8:06 Compliance rate %: 97 (29/30 days used) Current pressure setting (cmH2O): 10-13 Average residual AHI: 0 Subjective Patient concerns: reports: condensation in mask/hose, other (skin irritation under nose and nose is running all day long). denies: aerophagia, mask discomfort, air blowing in eyes, mask leak noise, nasal congestion, dry mouth, nose, throat, epistaxis Observed to snore while using device: No Current pressure setting perceived as: comfortable On therapy, patient: reports: sleeping better, awakening more refreshed, being more awake and alert during the day, more rested overall. denies: drowsiness while driving Initial [place] Sleepiness Scale score: 13 Current [place] Sleepiness Scale score: 8 (10/03/22) Allergies and Home Medications Drug allergies reviewed: Yes (as listed in EMR) Home medication list reviewed: Yes (no changes) Review of Systems Review of systems same as previous: Yes (no changes) Physical Exam Vital signs obtained and entered by: LEONELA Leigh MA Blood Pressure: 128/64 (LEFT ARM) Cuff size: regular Heart Rate: 90 O2 Saturation: 97 Height: 5 ft 2 in Weight: 217 lb 12.8 oz Body Mass Index: 39.8 BMI Classification: Obese Impression and Plan 1. Obstructive Sleep Apnea-Hypopnea Syndrome, mild, with good treatment compliance and good apnea control. On CPAP therapy, the patient has better sleep quality and is more rested overall. Patient has been having lots of problems with condensation in her tubing causing noises and with moisture in her mask. She is getting some skin irritation on her nose. She states she does not like the Jenn CPAP and that she never had this problem with her other Dreamstation CPAP. She did receive a replacement DreamStation 2 from [employer] and asked if she can use that machine instead. I informed her that she can use the Dreamstation 2 and return the Jenn to her DME. She will have to reach out to the DME about returning the CPAP and switching to the Dreamstation 2. She voiced understanding and states she will return the Jenn. Patient's apnea severity and rationale for treatment to reduce apnea, improve sleep quality and reduce cardiovascular and cerebrovascular events was reviewed. I also reviewed the benefit of consistent device use of CPAP for hypertension and gastric reflux. 2. Obesity, unspecified. Currently patients BMI is 39.8. Obesity increases the risk of apnea, CPAP pressure requirements and overall health risks especially cardiovascular and diabetes. Thus patient is advised to lose weight. * Continue auto CPAP pressure at 10-13 cmH2O * Notify me if snoring with mask or feeling that the pressure is too much or too little * Attempt to lose weight * Call this office if any problems using CPAP * Return for follow up in 1 year, or sooner if concerns arise Counseling Topics: Spare mask, Weight loss health impact Visit Type: In Office Time Spent with Patient (minutes): 25 Provider Statement: I spent 100% of the Face to Face Visit with the patient with greater than 50% spent counseling the patient and coordination of care.
== END 2022-10-03 14:22 | disposition home or self-care (01) ==
LOC: SC 14:21
PROVIDERS: ATTEND Nurse Practitioner Family
DX: G47.33 Obstructive sleep apnea (adult) (pediatric) (principal); E66.9 Obesity, unspecified; Z68.39 Body mass index [BMI] 39.0-39.9, adult
CPT/HCPCS: 99212; 99213

== ENCOUNTER 2022-11-02 08:40 | Outpatient (CLI) | payer OTHER ==
[2022-11-02 09:10] LABS: ESTIMATED AVERAGE GLUCOSE 134 mg/dL (70-100); HEMOGLOBIN A1c% 6.3 % (4.27-6.07)
[2022-11-02 09:31] LABS: CREATININE,URINE 131.9 mg/dL; MICROALBUMIN,URINE 2.9 mg/dL (0-300.0)
[2022-11-02 09:32] LABS: ALBUMIN 4.6 g/dL (3.2-5.5); ALBUMIN/GLOBULIN RATIO 1.4 (1.0-2.2); ALKALINE PHOSPHATASE 101 IU/L (42-121); ALT ALANINE AMINOTRANSFERASE 26 IU/L (10-60); AST ASPARTATE AMINOTRANSFERASE 22 IU/L (10-42); BILIRUBIN,TOTAL 0.5 mg/dL (0.2-1.0); BUN - BLOOD UREA NITROGEN 12 mg/dL (6-20); CALCIUM 9.6 mg/dL (8.5-10.3); CARBON DIOXIDE - CO2 25 mmol/L (21-32); CHLORIDE 103 mmol/L (101-111); CHOLESTEROL 159 mg/dL; CREATININE 0.9 mg/dL (0.4-1.0); GFR - MDRD 67 (>89); GLUCOSE 118 mg/dL (70-100); HDL CHOLESTEROL 53 mg/dL; LDL CHOLESTEROL,CALCULATED 75 mg/dL; LDL/HDL RATIO 1.4 (<4.4); POTASSIUM 4.2 mmol/L (3.5-5.0); SODIUM 137 mmol/L (135-145); TOTAL PROTEIN 7.9 g/dL (6.7-8.2); TRIGLYCERIDES 153 mg/dL; VLDL CHOLESTEROL 31 mg/dL
== END 2022-11-02 08:41 | disposition home or self-care (01) ==
LOC: LAB 08:40
PROVIDERS: ATTEND Family Medicine
DX: I10 Essential (primary) hypertension (principal); E11.9 Type 2 diabetes mellitus without complications; E78.2 Mixed hyperlipidemia; E55.9 Vitamin D deficiency, unspecified; E78.1 Pure hyperglyceridemia; Z79.899 Other long term (current) drug therapy
CPT/HCPCS: 36415; 80053; 80061; 82043; 82306; 82570; 83036; 83721

== ENCOUNTER 2023-02-06 08:02 | Outpatient (CLI) | payer OTHER ==
[2023-02-06 12:35] LABS: ESTIMATED AVERAGE GLUCOSE 140 mg/dL (70-100); HEMOGLOBIN A1c% 6.5 % (4.27-6.07)
[2023-02-06 12:46] LABS: ALBUMIN 3.7 g/dL (3.2-5.5); ALBUMIN/GLOBULIN RATIO 1.1 (1.0-2.2); ALKALINE PHOSPHATASE 90 IU/L (42-121); ALT ALANINE AMINOTRANSFERASE 26 IU/L (10-60); AST ASPARTATE AMINOTRANSFERASE 23 IU/L (10-42); BILIRUBIN,TOTAL 0.3 mg/dL (0.2-1.0); BUN - BLOOD UREA NITROGEN 8 mg/dL (6-20); CALCIUM 8.8 mg/dL (8.5-10.3); CARBON DIOXIDE - CO2 25 mmol/L (21-32); CHLORIDE 107 mmol/L (101-111); CHOL/HDL RATIO 2.8 (<4.4); CHOLESTEROL 137 mg/dL; CREATININE 0.7 mg/dL (0.4-1.0); GFR - MDRD 89 (>89); GLUCOSE 137 mg/dL (70-100); HDL CHOLESTEROL 49 mg/dL; LDL CHOLESTEROL,CALCULATED 61 mg/dL; LDL/HDL RATIO 1.2 (<4.4); SODIUM 140 mmol/L (135-145); TOTAL PROTEIN 7.1 g/dL (6.7-8.2); TRIGLYCERIDES 136 mg/dL; VLDL CHOLESTEROL 27 mg/dL
[2023-02-06 12:50] LABS: MICROALBUM/CREATININE RATIO,UR 17.4 ug/mg (<30.0); MICROALBUMIN,URINE 2.3 mg/dL (0-300.0)
== END 2023-02-06 08:03 | disposition home or self-care (01) ==
LOC: LAB.N 08:02
PROVIDERS: ATTEND Nurse Practitioner Family
DX: E11.9 Type 2 diabetes mellitus without complications (principal); E55.9 Vitamin D deficiency, unspecified; Z13.220 Encounter for screening for lipoid disorders
CPT/HCPCS: 36415; 80053; 80061; 82043; 82306; 82570; 83036; 83721

== ENCOUNTER 2023-10-23 15:52 | Outpatient (CLI) | payer OTHER ==
--- NOTE | 2023-10-23 16:17 | Sleep Patient Instructions ---
Sleep Center Visit Summary - Patient Visit Information Reason for Visit: Annual follow-up - Patient Instructions Additional Instructions: You will continue with CPAP therapy with pressure set at 10-13 cmH2O. A supply prescription will be updated with your DME. We encourage you to continue to try to lose weight. Please follow up with the sleep care office in 1 year. - Clinic Information Contact: [facility] [address] [place] [address] [email or web address] T: [phone]
--- NOTE | 2023-10-23 16:22 | SLEEP CARE CONSULTATION ---
Information from patient questionnaire entered by Donnie Medina. I have reviewed and concur with the information entered by Donnie Medina. This document represents the service I personally performed and the decisions made by me, Marisela Joseph ARNP. History of Present Illness Service Date and Time: 10/23/2023 1552 Previous diagnosis: Mild, Obstructive Sleep Apnea-Hypopnea Syndrome AHI: 7.0 Reason for follow up: annual (LAST SEEN 10/2022) Equipment type: CPAP (Dreamstation 2) Equipment obtained from: Other ([facility]; getting supplies) Mask style: Full face Backup mask available: Yes Last cushion change: monthly Prior sleep studies: Yes Year and Where: 2017 - [facility] Type of Sleep Study: Polysomnography HPI additional information: SHARDA BRANHAM was diagnosed to have mild, AHI 7, obstructive sleep apnea- hypopnea syndrome and returned today for CPAP therapy annual follow-up. Sleep Study - Results Type of Sleep Study: Polysomnography Prior sleep studies: Yes Year and Where: 2017 - [facility] CPAP Compliance Data - Data Reviewed with Patient Average duration of nightly device use: 8 HRS 26 MINS 6 SECS Compliance rate %: 99.7 (10/23/22-10/22/23; 365/365 days used) Current pressure setting (cmH2O): 10-13 Average residual AHI: 0.7 Central apnea: 0 Obstructive apnea: 0.2 Hypopnea: 0.5 Average large leak: 23 secs Subjective Missed days of use due to: reports: other (power outage) Patient concerns: denies: aerophagia, mask discomfort, air blowing in eyes, mask leak noise, condensation in mask/hose, nasal congestion, dry mouth, nose, thro at, epistaxis Observed to snore while using device: No Current pressure setting perceived as: comfortable On therapy, patient: reports: sleeping better, awakening more refreshed, being more awake and alert during the day, more rested overall. denies: drowsiness while driving Initial [place] Sleepiness Scale score: 13 Current [place] Sleepiness Scale score: 10 (10/23/23) Allergies and Home Medications Known drug allergies: Yes (as listed) Drug allergies reviewed: Yes Home medication list reviewed: Yes (no changes) Allergy and home medication list: Allergies latex Allergy (Verified 10/21/23 12:04) Rash hydrocodone bitartrate * [From Vicodin] Adverse Reaction (Severe, Verified 10/21/23 12:04) Nausea adhesive tape Adverse Reaction (Verified 10/21/23 12:04) Rash Review of Systems Review of systems same as previous: Yes (NO CHANGE) Physical Exam Vital signs obtained and entered by: DONNIE Leigh MA Blood Pressure: 141/77 (RIGHT ARM) Cuff size: regular Heart Rate: 84 O2 Saturation: 98 Height: 5 ft 2 in Weight: 223 lb 12.8 oz Body Mass Index: 40.9 BMI Classification: Morbidly Obese Impression and Plan 1. Obstructive Sleep Apnea-Hypopnea Syndrome, mild, with good treatment compliance and good apnea control. On CPAP therapy, the patient has better sleep quality and is more rested overall. Patient has significant improvement of their sleep apnea and is satisfied with current CPAP therapy. Patient denies problems with oral dryness, nasal congestion, epistaxis, skin irritation or aerophagia. Patient's apnea severity and rationale for treatment to reduce apnea, improve sleep quality and reduce cardiovascular and cerebrovascular events was reviewed. I also reviewed the benefit of consistent device use of CPAP for hypertension, gastric reflux. 2. Obesity, unspecified. Currently patients BMI is 40.9. Obesity increases the risk of apnea, CPAP pressure requirements and overall health risks especially cardiovascular and diabetes. Thus patient is advised to lose weight. * Continue auto CPAP pressure at 10-13 cmH2O * Update supply prescription * Notify me if snoring with mask or feeling that the pressure is too much or too little * Attempt to lose weight * Call this office if any problems using CPAP * Return for follow up in 12 months, or sooner if concerns arise Counseling Topics: Spare mask, Weight loss health impact Prescriptions: Device supplies Follow up with Sleep Care in: 1 year Visit Type: In Office Time Spent with Patient (minutes): 20 Provider Statement: I spent 100% of the Face to Face Visit with the patient with greater than 50% spent counseling the patient and coordination of care.
[2023-10-23 16:23] VITALS: BP 141/77; O2SAT 98
== END 2023-10-23 15:53 | disposition home or self-care (01) ==
LOC: SC 15:52
PROVIDERS: ATTEND Nurse Practitioner Family
DX: G47.33 Obstructive sleep apnea (adult) (pediatric) (principal); E66.01 Morbid (severe) obesity due to excess calories; Z68.41 Body mass index [BMI] 40.0-44.9, adult
CPT/HCPCS: 99212; 99213

== ENCOUNTER 2024-02-11 08:00 | Outpatient (CLI) | payer OTHER ==
[2024-02-11 18:00] LABS: ALBUMIN 4.5 g/dL (3.2-5.5); ALBUMIN/GLOBULIN RATIO 1.7 (1.0-2.2); ALKALINE PHOSPHATASE 97 IU/L (42-121); ALT ALANINE AMINOTRANSFERASE 18 IU/L (10-60); AST ASPARTATE AMINOTRANSFERASE 16 IU/L (10-42); BILIRUBIN,TOTAL 0.4 mg/dL (0.2-1.0); BUN - BLOOD UREA NITROGEN 11 mg/dL (6-20); CALCIUM 9.8 mg/dL (8.5-10.3); CARBON DIOXIDE - CO2 25 mmol/L (21-32); CHLORIDE 103 mmol/L (101-111); CHOL/HDL RATIO 2.5 (<4.4); CHOLESTEROL 108 mg/dL; GFR - MDRD 58 (>89); GLUCOSE 152 mg/dL (74-104); HDL CHOLESTEROL 44 mg/dL; LDL CHOLESTEROL,CALCULATED 28 mg/dL; LDL/HDL RATIO 0.6 (<4.4); POTASSIUM 4.3 mmol/L (3.5-4.5); SODIUM 136 mmol/L (135-145); TOTAL PROTEIN 7.1 g/dL (6.4-8.9); TRIGLYCERIDES 178 mg/dL (48-352); VLDL CHOLESTEROL 36 mg/dL
[2024-02-11 20:52] LABS: ESTIMATED AVERAGE GLUCOSE 114 mg/dL (70-100); HEMOGLOBIN A1c% 5.6 % (4.27-6.07)
== END 2024-02-11 23:59 | disposition home or self-care (01) ==
LOC: LAB.N 08:00
PROVIDERS: ATTEND Nurse Practitioner
DX: E11.8 Type 2 diabetes mellitus with unspecified complications (principal); E78.2 Mixed hyperlipidemia; E55.9 Vitamin D deficiency, unspecified
CPT/HCPCS: 36415; 80053; 80061; 82306; 83036; 83721